=== PATIENT | female | born 1995 | race Hispanic/Latino ===

== ENCOUNTER 2018-02-06 09:53 | Emergency (ER) | payer MEDICARE, OTHER ==
[~2018-02-06] VITALS: Ht 175.3 cm; Wt 96.6 kg
--- OUTSIDE RECORDS SUMMARY | 2018-02-06 09:55 | XMS REPORT ---
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 Allergies, Adverse Reactions, Alerts This patient has no known allergies or adverse reactions. Medications This patient has no known medications. Results Test Description Test Time Test Comments Text Results Atomic Results Result Comments HEPATITIS C PCR, QUANTITATIVE 2018-02-05 18:24:00 HCV RESULT COMPONENT (BEAKER) (test kolx=5140) HCV RNA not detected HCV RNA not detected This test uses a Real-Time Polymerase Chain Reaction (RT-PCR) methodology and was performed using HECTOR Ampliprep/HECTOR TaqMan HCV test kit version 2.0 ( [employer]).Reportable range for this assay is 15 - 100,000, 000 IU per mL (1.18 - 8.00 Log IU/mL).HEPATITIS A ANTIBODY, [id number] 15:46: 00* Test Item Value Reference Range Comments HEPATITIS A IGM ANTIBODY (BEAKER) (test qsyq=436) Nonreactive Nonreactive HEPATITIS B CORE ANTIBODY, [id number] 15:46:00* Test Item Value Reference Range Comments HEPATITIS B CORE TOTAL ANTIBODY (BEAKER) (test weqn=916) Nonreactive Nonreactive HEPATITIS A ANTIBODY, [id number] 15:46:00* Test Item Value Reference Range Comments HEPATITIS A IGG ANTIBODY (BEAKER) (test ydgp=4966) Nonreactive Nonreactive HEPATITIS B SURFACE [id number] 15:16:00* Test Item Value Reference Range Comments HEPATITIS B SURFACE ANTIGEN (2) (BEAKER) (test zjqz=1099) Nonreactive Nonreactive HEPATITIS B SURFACE [id number] 15:16:00* Test Item Value Reference Range Comments HEPATITIS B SURFACE ANTIBODY (BEAKER) (test rauv=907) 9.1 mIU/mL <8.0 ALPHA FETOPROTEIN (AFP), TUMOR [id number] 14:22:00* Test Item Value Reference Range Comments ALPHA-FETOPROTEIN (BEAKER) (test enwa=2120) < ng/mL <10.0 [id number] 14:16:00* Test Item Value Reference Range Comments FERRITIN (BEAKER) (test ysyd=600) 12 ng/mL 5-275 [id number] 14:08:00* Test Item Value Reference Range Comments ALPHA-1 ANTITRYPSIN (BEAKER) (test nqek=480) 154.60 mg/dL 90.00-200.00 IMMUNOGLOBULIN G (IGG)2018-02-04 14:07:00* Test Item Value Reference Range Comments IMMUNOGLOBULIN G (IGG) (BEAKER) (test ujib=525) 1186 mg/dL 540-1822 IRON, TIBC, % SAT. (WITHOUT FERRITIN)2018-02-04 14:07:00* Test Item Value Reference Range Comments IRON (BEAKER) (test fugz=555) 38 ug/dL 40-160 TOTAL IRON BINDING CAPACITY (BEAKER) (test wvhv=911) 370 ug/dL 250-450 IRON % SATURATION (2) (BEAKER) (test dcsw=3690) 10 % 20-55 COMPREHENSIVE METABOLIC [id number] 14:04:00* Test Item Value Reference Range Comments TOTAL PROTEIN (BEAKER) (test ekjv=337) 7.7 gm/dL 6.0-8.3 ALBUMIN (BEAKER) (test hrho=9028) 4.0 g/dL 3.5-5.0 ALKALINE PHOSPHATASE (BEAKER) (test icrt=003) 62 U/L 40-150 BILIRUBIN TOTAL (BEAKER) (test bocq=464) 0.5 mg/dL 0.2-1.2 SODIUM (BEAKER) (test xugy=505) 143 meq/L 136-145 POTASSIUM (BEAKER) (test hmao=059) 4.2 meq/L 3.5-5.1 CHLORIDE (BEAKER) (test qjkk=858) 106 meq/L 98-107 CO2 (BEAKER) (test wwnu=597) 28 meq/L 22-29 BLOOD UREA NITROGEN (BEAKER) (test caix=518) 15 mg/dL 7-21 CREATININE (BEAKER) (test vhfi=554) 0.71 mg/dL 0.57-1.25 GLUCOSE RANDOM (BEAKER) (test nlsp=812) 94 mg/dL 70-105 CALCIUM (BEAKER) (test jmxz=217) 9.4 mg/dL 8.4-10.2 AST (SGOT) (BEAKER) (test djbg=715) 22 U/L 5-34 ALT (SGPT) (BEAKER) (test xbbk=806) 20 U/L 6-55 EGFR (BEAKER) (test xyqg=5225) 104 mL/min/1.73 sq m ESTIMATED GFR IS NOT ACCURATE CREATININE CLEARANCE IN PREDICTING GLOMERULAR FILTRATION RATE. ESTIMATED GFR IS NOT APPLICABLE FOR DIALYSIS PATIENTS. BILIRUBIN, [id number] 14:04:00* Test Item Value Reference Range Comments BILIRUBIN DIRECT (BEAKER) (test etub=034) 0.2 mg/dL 0.1-0.5 CBC W/PLT COUNT & AUTO [id number] 13:37:00* Test Item Value Reference Range Comments WHITE BLOOD CELL COUNT (BEAKER) (test whsr=384) 12.9 K/ L 3.5-10.5 RED BLOOD CELL COUNT (BEAKER) (test mqyx=091) 4.68 M/ L 3.93-5.22 HEMOGLOBIN (BEAKER) (test xcio=470) 12.0 GM/DL 11.2-15.7 HEMATOCRIT (BEAKER) (test madi=135) 38.7 % 34.1-44.9 MEAN CORPUSCULAR VOLUME (BEAKER) (test rlhj=384) 82.7 fL 79.4-94.8 MEAN CORPUSCULAR HEMOGLOBIN (BEAKER) (test ciph=859) 25.6 pg 25.6-32.2 MEAN CORPUSCULAR HEMOGLOBIN CONC (BEAKER) (test dymn=161) 31.0 GM/DL 32.2- 35.5 RED CELL DISTRIBUTION WIDTH (BEAKER) (test jgqt=271) 13.5 % 11.7-14.4 PLATELET COUNT (BEAKER) (test mlvu=739) 238 K/CU MM 150-450 MEAN PLATELET VOLUME (BEAKER) (test rnrt=987) 11.5 fL 9.4-12.3 NUCLEATED RED BLOOD CELLS (BEAKER) (test guzv=005) 0 /100 WBC 0-0 NEUTROPHILS RELATIVE PERCENT (BEAKER) (test vtrl=235) 76 % LYMPHOCYTES RELATIVE PERCENT (BEAKER) (test tdej=421) 14 % MONOCYTES RELATIVE PERCENT (BEAKER) (test waxl=767) 8 % EOSINOPHILS RELATIVE PERCENT (BEAKER) (test ftbo=517) 1 % BASOPHILS RELATIVE PERCENT (BEAKER) (test mnij=377) 0 % NEUTROPHILS ABSOLUTE COUNT (BEAKER) (test bawo=306) 9.83 K/ L 1.56-6.13 LYMPHOCYTES ABSOLUTE COUNT (BEAKER) (test eylo=429) 1.80 K/ L 1.18-3.74 MONOCYTES ABSOLUTE COUNT (BEAKER) (test hhyk=701) 1.03 K/ L 0.24-0.36 EOSINOPHILS ABSOLUTE COUNT (BEAKER) (test ogzc=419) 0.06 K/ L 0.04-0.36 BASOPHILS ABSOLUTE COUNT (BEAKER) (test aqtw=367) 0.05 K/ L 0.01-0.08 IMMATURE GRANULOCYTES-RELATIVE PERCENT (BEAKER) (test nizb=2380) 1 % 0-1 PROTHROMBIN [id number] 13:27:00* Test Item Value Reference Range Comments PROTIME (BEAKER) (test jhps=774) 13.0 seconds 11.7-14.7 INR (BEAKER) (test sipi=524) 1.0 <=5.9 RECOMMENDED COUMADIN/WARFARIN INR THERAPY RANGESSTANDARD DOSE: 2.0 - 3.0 Includes: PROPHYLAXIS for venous thrombosis, systemic embolization; TREATMENT for venous thrombosis and/or pulmonary embolus.HIGH RISK: Target INR is 2.5-3.5 for patients with mechanical heart valves.
[2018-02-06] MEDS ORDERED: ASPIR 8181 MG PO (10:12)
[2018-02-06] MEDS ORDERED: HYDROXYCHLOROQ200 MG PO (10:12)
[2018-02-06] MEDS ORDERED: NEXIUM40 MG PO (10:12)
[2018-02-06] MEDS ORDERED: FLOVENT HFA17 GM PO (10:12)
[2018-02-06] MEDS ORDERED: CELEBREX200 MG PO (10:12)
[2018-02-06] MEDS ORDERED: MYCOPHENOLATE250 MG PO (10:12)
[2018-02-06] MEDS ORDERED: NORA-BE0.35 MG PO (10:12)
[2018-02-06] MEDS ORDERED: PREDNISONE10 MG PO (10:12)
[2018-02-06] MEDS ORDERED: SODIUM CHLORIDE 0.9% 1000ML 1,000 ML IV STA ×3 (10:22→10:40)
[2018-02-06 10:32] LABS: BASOPHILS % 0.1 % (0.0-1.0); EOSINOPHILS % 0.2 % (0.0-6.0); HEMOGLOBIN 12.3 g/dL (12.0-16.0); LYMPHOCYTES # (AUTO) 2.1 (1.0-3.2); LYMPHOCYTES % 13.2 % (18.0-39.1); MEAN CORPUSCULAR HEMOGLOBIN 25.9 pg (28-32); MEAN CORPUSCULAR HGB CONC 32.4 g/dL (31-35); MONOCYTES % 6.2 % (4.4-11.3); NEUTROPHILS # (AUTO) 12.7 (2.1-6.9); NEUTROPHILS % 79.7 % (38.7-80.0); PLATELET COUNT 232 x10e3/uL (140-360); RED BLOOD COUNT 4.75 x10e6/uL (3.6-5.1); RED CELL DISTRIBUTION WIDTH 13.3 % (11.7-14.4)
--- NOTE | 2018-02-06 10:35 | Diagnostic Imaging Report ---
PROCEDURE: X-RAY CHEST, TWO VIEWS COMPARISON: None. INDICATIONS: FEVER, NAUSEA FINDINGS: LUNGS: No consolidations or edema. PLEURA: No effusions or pneumothorax. HEART \T\ MEDIASTINUM: The heart is within normal size-limits. BONES \T\ SOFT TISSUES: No acute findings. CONCLUSION: No acute thoracic abnormality. Dictated by: Francisco Curry M.D. on 02/06/2018 at 10:35 Electronically approved by: Francisco Curry M.D. on 02/06/2018 at 10:35
[2018-02-06] MEDS ORDERED: IBUPROFEN 600 MG TAB PO STA (10:36)
[2018-02-06] MEDS ORDERED: FAMOTIDINE 20 MG/2 ML VIAL IV STA (10:40)
[2018-02-06 10:43] LABS: INR 0.99; PROTHROMBIN TIME 12.3 seconds (11.9-14.5)
[2018-02-06 10:44] LABS: PARTIAL THROMBOPLASTIN TIME 31.7 seconds (23.8-35.5)
[2018-02-06] MEDS ORDERED: DIPHENHYDRAMINE HCL INJ 50 MG/ML VIAL IV ONE (10:45)
[2018-02-06] MEDS ORDERED: DOXYCYCLINE 100MG/NS 100ML 100 ML IV ONE (10:45)
[2018-02-06] MEDS ORDERED: MEROPENEM 1GRAM 1 GM in SODIUM CHLORIDE 0.9% 100 ML 100 ML IV ONE (10:45)
[2018-02-06] MEDS ORDERED: LEVOFLOXACIN 750MG/D5W 150ML 150 ML IV ONE (10:45)
[2018-02-06] MEDS ORDERED: ACETAMINOPHEN 325 MG TAB PO ONE (10:45)
[2018-02-06 10:46] LABS: MAGNESIUM 1.7 MG/DL (1.3-2.1)
[2018-02-06 11:42] LABS: ALANINE AMINOTRANSFERASE 27 IU/L (0-55); ALBUMIN 3.7 g/dL (3.5-5.0); ALBUMIN/GLOBULIN RATIO 0.8 (0.8-2.0); ALKALINE PHOSPHATASE 69 IU/L (40-150); ANION GAP 16.8 mmol/L (8-16); BLOOD UREA NITROGEN 13 mg/dL (7-26); BUN/CREATININE RATIO 18 (6-25); CALCIUM 9.7 mg/dL (8.4-10.2); CARBON DIOXIDE 24 mmol/L (22-29); CHLORIDE 102 mmol/L (98-107); CREATININE, SERUM 0.73 mg/dL (0.57-1.11); EST GLOMERULAR FILTRATION RATE > 60 ML/MIN (60-); GLUCOSE 88 mg/dL (74-118); POTASSIUM 3.8 mmol/L (3.5-5.1); SODIUM 139 mmol/L (136-145)
[2018-02-06 13:28] LABS: CREATINE KINASE MB 0.7 ng/mL (0-5.0)
== END 2018-02-06 12:00 | disposition designated cancer center or children's hospital (05) ==
LOC: ER 09:53
DX: R50.9 Fever, unspecified (principal); L02.31 Cutaneous abscess of buttock; L02.415 Cutaneous abscess of right lower limb; D72.829 Elevated white blood cell count, unspecified; M32.9 Systemic lupus erythematosus, unspecified; K75.4 Autoimmune hepatitis
CPT/HCPCS: 36415; 71046; 80053; 82550; 82553; 83605; 83690; 83735; 84484; 84702; 85025; 85610; 85730; 87040; 99284; J1200; J7030

== ENCOUNTER 2018-04-14 18:33 | Emergency (ER) | payer OTHER ==
[~2018-04-14] VITALS: Ht 175.3 cm; Wt 96.6 kg
[~2018-04-14 18:33] MED LIST: ASPIR 8181 MG PO; CELEBREX200 MG PO; FLOVENT HFA17 GM PO; HYDROXYCHLOROQ200 MG PO; MYCOPHENOLATE250 MG PO; NEXIUM40 MG PO; NORA-BE0.35 MG PO; PREDNISONE10 MG PO
--- OUTSIDE RECORDS SUMMARY | 2018-04-14 18:37 | XMS REPORT | Continuity of Care Document ---
Author Author [facility] Organization [facility] Address [address] [place] [address] Phone Unavailable Care Team Providers Care Jigman Name Role Phone KIZZY CHUA MD PCP Advance Directives Directive Response Recorded Date/Time Does the patient have an advance directive? No 02/06/18 9:56am If yes, is advance directive on file with [facility]? No 02/06/18 9:56am If not on file with [facility] will patient provide a copy? No 02/06/18 9:56am Do you have a Directive to Physician? No 02/06/18 9:56am Do you have a Medical Power of Joint Finisher? No 02/06/18 9:56am Do you have an out of hospital Do Not Resuscitate Order? No 02/06/18 9:56am Do you have any special needs we should be aware of? No 02/06/18 9:56am Do you have a support person here with you today? Yes 02/06/18 9:56am Did patient receive Notice of Privacy Practices? Yes 02/06/18 9:56am Did patient receive patient rights and responsibilities? Yes 02/06/18 9:56am Problems No problem information available. Medications Current Home Medications Medication Dose Units Route Directions Days Qty Instructions Start Date Aspirin (Aspir 81) 81 Mg Tablet. 1 Tab Oral Daily Celecoxib (Celebrex) 200 Mg Capsule 1 Tab Oral Daily Esomeprazole Magnesium (Nexium) 40 Mg Capsule. 1 Cap Oral Daily PROTONIX THERAPEUTIC SUBSTITUTE FOR NEXIUM PER MEC Fluticasone Propionate (Flovent Hfa) 17 Gm Aers 220 Mcg Oral Twice A Day Hydroxychloroquine Sulfate 200 Mg Tablet 2 Tab Oral Daily Mycophenolate Mofetil 250 Mg Capsule 500 Mg Oral Twice A Day Norethindrone (Danae-Be) 0.35 Mg Tablet 1 Tab Oral Daily Prednisone 10 Mg Tab 15 Mg Oral Daily Social History No social history information available. Hospital Discharge Instructions No hospital discharge instruction information available. Plan of Care Discharge Date 02/06/18 12:00pm Disposition DIS/HECK T0 ACUTE CARE HOSP Condition at Discharge Stable Instructions/Education Provided Rash - Nonspecific Forms Provided Work/School Excuse Prescriptions See Medication Section Functional Status No functional status information available. Allergies, Adverse Reactions, Alerts Allergen Type Severity Reaction Status Last Updated Penicillin Allergy Unknown Active 02/06/18 Acetaminophen Allergy Unknown Active 02/06/18 Ibuprofen Allergy Unknown Active 02/06/18 Naproxen Allergy Unknown Active 02/06/18 Clindamycin Allergy Unknown Active 02/06/18 Famotidine Allergy Unknown Active 02/06/18 Tramadol Allergy Unknown Active 02/06/18 Ketorolac Allergy Unknown Active 02/06/18 Vancomycin Allergy Unknown Active 02/06/18 Immunizations No immunization information available. Vital Signs Acute Vital Signs Vital Response Date/Time Height 5 ft 9 in 02/06/2018 9:59am Weight 213 lb 02/06/2018 9:59am Body Mass Index 31.5 kg/m^2 02/06/2018 9:59am Results Laboratory Results Test Name Result Units Flags Reference Collection Date/Time Result Date/ Time Comments White Blood Count 15.99 x10e3/uL H 4.8-10.8 02/06/2018 UNK 02/06/2018 10 :35am Red Blood Count 4.75 x10e6/uL 3.6-5.1 02/06/2018 UNK 02/06/2018 10: 35am Hemoglobin 12.3 g/dL 12.0-16.0 02/06/2018 UNK 02/06/2018 10:35am Hematocrit 38.0 % 34.2-44.1 02/06/2018 UNK 02/06/2018 10:35am Mean Corpuscular Volume 80.0 fL L 81-99 02/06/201802/06/2018 10: 35am Mean Corpuscular Hemoglobin 25.9 pg L 28-32 02/06/201802/06/2018 10 :35am Mean Corpuscular Hemoglobin Concent 32.4 g/dL 31-35 02/06/201808/2018 10:35am Red Cell Distribution Width 13.3 % 11.7-14.4 02/06/201802/06/2018 10:35am Platelet Count 232 x10e3/uL 140-360 02/06/201802/06/2018 10:35am Neutrophils (%) (Auto) 79.7 % 38.7-80.0 02/06/201802/06/2018 10: 35am Lymphocytes (%) (Auto) 13.2 % L 18.0-39.1 02/06/2018 02/06/2018 10: 35am Monocytes (%) (Auto) 6.2 % 4.4-11.3 02/06/2018 02/06/2018 10:35am Eosinophils (%) (Auto) 0.2 % 0.0-6.0 02/06/201802/06/2018 10:35am Basophils (%) (Auto) 0.1 % 0.0-1.0 02/06/201802/06/2018 10:35am IM GRANULOCYTES % 0.6 % 0.0-1.0 02/06/201802/06/2018 10:35am Neutrophils # (Auto) 12.7 H 2.1-6.9 02/06/201802/06/2018 10:35am Lymphocytes # (Auto) 2.1 1.0-3.2 02/06/201802/06/2018 10:35am Monocytes # (Auto) 1.0 H 0.2-0.8 02/06/201802/06/2018 10:35am Eosinophils # (Auto) 0.0 0.0-0.4 02/06/201802/06/2018 10:35am Basophils # (Auto) 0.0 0.0-0.1 02/06/201802/06/2018 10:35am Absolute Immature Granulocyte (auto 0.10 x10e3/uL 0-0.1 02/06/2018K 02/06/2018 10:35am Prothrombin Time 12.3 seconds 11.9-14.5 02/06/2018K 02/06/2018 10: 48am Prothromb Time International Ratio 0.99 02/06/2018K 02/06/2018 10:48am Oral Anticoagulant Therapy INR Values: 1. Low Intensity Therapy 1.5 - 2.0 2. Moderate Intensity Therapy 2.0 - 3.0 3. High Intensity Therapy(1) 2.5 - 3.5 4. High Intensity Therapy(2) 3.0 - 4.0 5. Panic Value INR > 5.0 Activated Partial Thromboplast Time 31.7 seconds 23.8-35.5 02/06/2018K 02/06/2018 10:48am Sodium Level 139 mmol/L 136-145 02/06/2018 10:14am 02/06/2018 11:45am Potassium Level 3.8 mmol/L 3.5-5.1 02/06/2018 10:14am 02/06/2018 11: 45am Chloride Level 102 mmol/L 98-107 02/06/2018 10:14am 02/06/2018 11:45am Carbon Dioxide Level 24 mmol/L 22-29 02/06/2018 10:14am 02/06/2018 11: 45am Anion Gap 16.8 mmol/L H 8-16 02/06/2018 10:14am 02/06/2018 11:45am Blood Urea Nitrogen 13 mg/dL 7-26 02/06/2018 10:14am 02/06/2018 11: 45am Creatinine 0.73 mg/dL 0.57-1.11 02/06/2018 10:14am 02/06/2018 11:45am BUN/Creatinine Ratio 18 6-25 02/06/2018 10:14am 02/06/2018 11:45am Estimat Glomerular Filtration Rate > 60 ML/MIN 60- 02/06/2018 10:14am 02/06/2018 11:45am Ranges were taken from the National Kidney Disease Education Program and the National [employer] literature. Reference ranges: 60 or greater: Normal 16-59 (for 3 consecutive months): Chronic kidney disease 15 or less: Kidney failure Glucose Level 88 mg/dL 74-118 02/06/2018 10:14am 02/06/2018 11:45am Calcium Level 9.7 mg/dL 8.4-10.2 02/06/2018 10:1402/06/2018 11:45am Lactic Acid Level 15.9 MG/DL 4.5-19.8 02/06/2018 UNK 02/06/2018 11: 22am Magnesium Level 1.7 MG/DL 1.3-2.1 02/06/2018 10:02/06/2018 10: 48am Total Bilirubin 0.9 mg/dL 0.2-1.2 02/06/2018 10:1402/06/2018 11: 45am Aspartate Amino Transf (AST/SGOT) 20 IU/L 5-34 02/06/2018 10:1402/06 11:45am Alanine Aminotransferase (ALT/SGPT) 27 IU/L 0-55 02/06/2018 10:08/2018 11:45am Total Protein 8.1 g/dL 6.5-8.1 02/06/2018 10:1402/06/2018 11:45am Albumin 3.7 g/dL 3.5-5.0 02/06/2018 10:1402/06/2018 11:45am Globulin 4.4 g/dL H 2.3-3.5 02/06/2018 10:1402/06/2018 11:45am Albumin/Globulin Ratio 0.8 0.8-2.0 02/06/2018 10:1402/06/2018 11: 45am Alkaline Phosphatase 69 IU/L 40-150 02/06/2018 10:14am 02/06/2018 11: 45am Creatine Kinase 55 IU/L 29-168 02/06/2018 10:2202/06/2018 10:48am Lipase 8 U/L 8-78 02/06/2018 10:02/06/2018 10:48am Human Chorionic Gonadotropin, Qual NEGATIVE NEGATIVE 02/06/2018 10: 14am 02/06/2018 10:41am Procedures Procedure Status Date Provider(s) X-ray of chest, two views Active 02/06/18 JUSTIN CERDA Encounters Encounter Location Arrival/Admit Date Discharge/Depart Date Attending Provider Departed Emergency Room [facility] 02/06/18 9:53am 12:00pm JUSTIN CERDA
--- OUTSIDE RECORDS SUMMARY | 2018-04-14 18:37 | XMS REPORT | Clinical Summary ---
Author Author ABBY [facility] Address Unknown Phone Unavailable Care Team Providers Care National Recruiter Name Role Phone PCP Unavailable Allergies Active Allergy Reactions Severity Noted Date Comments Clindamycin Hives, Other (See High 10/16/2015 Per mother Comments), Anaphylaxis, Can't breath Swelling Ibuprofen Swelling, Anaphylaxis High 11/02/2013 Throat swells. 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 Disp. Refills Start End Date Status Date celecoxib (CELEBREX) 200 12/29/19 Active MG capsule 18 aspirin-calcium carbonate Take 81 mg by mouth. Active 81 mg-300 mg calcium(777 mg) Tab hydroxychloroquine Take 400 mg by mouth. Active (PLAQUENIL) 200 mg tablet predniSONE (DELTASONE) 10 10 mg daily . 3 11/13/20 Active MG tablet 17 mycophenolate (CELLCEPT) Take 1,000 mg by mouth 2 Active 500 mg tablet (two) times daily . norethindrone (MICRONOR) Take 1 tablet by mouth Active 0.35 mg per tablet daily. esomeprazole (NEXIUM) 40 Take 40 mg by mouth Active MG capsule daily. ALBUTEROL SULFATE (PROAIR Inhale by mouth via Active HFA INHL) inhaler as needed . BELIMUMAB IV Inject intravenously Active every 14 (fourteen) days . ferrous sulfate 325 (65 Take 1 tablet (325 mg 30 tablet 11 04/01/20 04/01/20 Active FE) MG tablet total) by mouth daily. 18 19 oxyCODONE (ROXICODONE) 15 Take 1 tablet (15 mg 30 tablet 0 04/01/20 05/01/20 Active MG immediate release total) by mouth every 3 18 18 tablet (three) hours as needed for up to 30 days. Max Daily Amount: 120 mg oxyCODONE (ROXICODONE) 15 Take 1 tablet (15 mg 30 tablet 0 04/01/20 04/01/20 Discontin MG immediate release total) by mouth every 3 18 18 ued tablet (three) hours as needed for up to 30 days. Max Daily Amount: 120 mg ondansetron (ZOFRAN) 4 MG Take 1 tablet (4 mg 30 tablet 0 04/01/20 04/08/20 tablet total) by mouth 2 (two) 18 18 times daily as needed for Nausea for up to 7 days. Active Problems Problem Noted Date History of liver biopsy 03/31/2018 Facial cellulitis 01/07/2018 Migraine aura, persistent, with status migrainosus 01/07/2018 Systemic lupus erythematosus (SLE) in adult ([facility]) 01/07/2018 Periapical abscess with sinus tract 09/24/2017 Immunosuppression ([facility]) 12/19/2016 Calculus of gallbladder without cholecystitis without obstruction 10/17/2015 History of TIA (transient ischemic attack) 06/24/2014 Mixed emotional features as adjustment reaction 09/24/2013 Depression 09/23/2013 Panic disorder with agoraphobia and moderate panic attacks 09/23/2013 Antiphospholipid antibody positive 01/17/2013 Excessive and frequent menstruation 12/24/2012 Overview: Overview: Overview: Formatting of this note may be different from the original. Ref. Range 12/31/2012 08:58 WBC Latest Range: 4.5-13.5 10^3/UL 4.43 (L) RBC Latest Range: 4.1-5.1 10^6/UL 3.87 (L) HGB Latest Range: 12.0-16.0 G/DL 12.8 HCT Latest Range: 36.0-45.0 % 36.1 MCV Latest Range: 78.0-95.0 FL 93.3 MCH Latest Range: 26.0-32.0 PG 33.1 (H) MCHC Latest Range: 32.0-36.0 G/DL 35.5 RDWCV Latest Range: 11.5-14.0 % 12.9 RDWSD Latest Range: 38.5-49.0 FL 43.8 Platelet Latest Range: 150-450 10^3/UL 171 Ref. Range 12/31/2012 08:58 Factor 13 Activity Latest Range: . 103 Factor 8 Latest Range: 47-169 % 122 Fibrinogen Latest Range: 220-440 MG/DL 332 INR Latest Range: 0.8-1.2 1.0 Protime Latest Range: 11.4-15.0 SEC 13.0 PTT Latest Range: 24.9-34.3 SEC 34.7 (H) Ristocetin Cofactor Latest Range: 48-142 % 103 Ristocetin High Ag Latest Range: 7-48 OHMS 25 Ristocetin Low Ag Latest Range: <5 OHMS 0 SPEC COAG REQ INFO No range found Rpt Thrombin Secretion Latest Range: 0.62-1.65 NMOLES 1.35 VWF Antigen Latest Range: 56-176 % 96 VWL Act/VWF AG Latest Range: 0.7-1.2 1.1 Ref. Range 01/14/2013 14:36 Ferritin Latest Range: 10-70 NG/ML 16 Iron Latest Range: 55-150 UG/DL 124 Transferrin Latest Range: 169-300 MG/DL 300 Transferrin Sat Latest Range: 11-44 % 28 12/31/2012: 1. The platelet count in the specimen was 153,000/mm3. 2. Platelet aggregation was normal in response to all agonists tested. 3. ATP release (secretion) was normal in response to thrombin, low dose collagen and ADP; secretion was increased in response to high dose collagen and arachidonic acid. ASSESSMENT: In conclusion, these findings are not suggestive of a platelet function defect. Ref. Range 01/14/2013 14:36 Factor 11 Latest Range: 48-139 % 88 Factor 8 Latest Range: 47-169 % 130 Ristocetin Cofactor Latest Range: 48-142 % 110 TEG Angle Latest Range: 49.1-74.7 DEG 59.7 TEG Coag Index Latest Range: . NEG 0.6 REFERENCE RANGE (NEG 5.3 - 2.6) TEG Fibrinolysis Latest Range: . % 0.0 TEG Max Amplitude Latest Range: 53.6-70.3 MM 62.7 TEG Reaction Time Latest Range: 4.4-11.0 MIN 6.4 TEGK Clot Firmness Latest Range: 5.2-11.3 K d/sc 8.4... TEGK Path Comment Latest Range: . All parameters were within normal limits and no hyperfibrinolysis was observed. TEGK Reviewed By Latest Range: . SERGO MARCANO MD VWF Antigen Latest Range: 56-176 % 109 VWL Act/VWF AG Latest Range: 0.7-1.2 1.0 Autoimmune hepatitis (HCC) 03/12/2011 Chronic pain 03/12/2011 SLE (systemic lupus erythematosus) (HCC) Elevated liver enzymes Obesity, Class I, BMI 30-34.9 Rheumatoid arthritis (HCC) Pneumonitis Overview: SLE related Immunity status testing Headache Dental decay Antiphospholipid antibody syndrome (HCC) Hepatomegaly Splenomegaly Encounters Date Type Specialty Care Team Description 04/13/2018 Emergency Emergency Medicine - 04/14/2018 04/13/2018 Telephone Hepatology Honey Jimenez, Fever (Cough and pain on [facility] the biopsy site) 04/13/2018 Telephone Hepatology Jackie Herrera RN other 03/31/2018 [facility] General Internal Medicine Honey Jimenez, Splenomegaly;Autoimmune - Encounter [facility] hepatitis (HCC);Lupus 04/01/2018 Daniel Mtz MD erythematosus, unspecified form;History of liver biopsy;Antiphospholipid antibody syndrome (HCC);Immunosuppression (HCC);Systemic lupus erythematosus (SLE) in adult (HCC) 03/31/2018 Orders Only Internal Medicine Daniel Mtz MD 03/20/2018 Office Visit Hepatology Honey Jimenez, Autoimmune hepatitis [facility] (HCC) (Primary Dx);Splenomegaly;Lupus erythematosus, unspecified form;Obesity, Class I, BMI 30-34.9;Immunization counseling;Immune to hepatitis B;Gallbladder polyp;Low iron;Portal hypertension (HCC) 02/19/2018 [facility] Radiology Honey Jimenez, Systemic lupus Encounter [facility] erythematosus, unspecified SLE type, unspecified organ involvement status (HCC);Elevated liver enzymes;Autoimmune hepatitis (HCC) 02/09/2018 Abstract Hepatology Jailene Owens RN 02/04/2018 Office Visit Hepatology Honey Jimenez, Autoimmune hepatitis [facility] (HCC) (Primary Dx);Systemic lupus erythematosus, unspecified SLE type, unspecified organ involvement status (HCC);Elevated liver enzymes;Obesity, Class I, BMI 30-34.9;Rheumatoid arthritis, involving unspecified site, unspecified rheumatoid factor presence (HCC);Pneumonitis;Immunit y status testing;Intractable headache, unspecified chronicity pattern, unspecified headache type;Screening for malignant neoplasm after 04/13/2017 Family History Medical History Relation Name Comments Diabetes Brother Diabetes Father Cancer Maternal Grandfather Cirrhosis Maternal Grandmother Diabetes Maternal Grandmother Diabetes Mother Relation Name Status Comments Brother Father Maternal Grandfather Maternal Grandmother Mother Social History Tobacco Use Types Packs/Day Years Used Date Never Smoker Smokeless Tobacco: Never Used Alcohol Use Drinks/Week oz/Week Comments No Sex Assigned at Date Recorded Not on file Last Filed Vital Signs Vital Sign Reading Time Taken Blood Pressure 117/82 04/01/2018 11:00 AM CDT Pulse 87 04/01/2018 11:00 AM CDT Temperature 36.1 C (97 F) 04/01/2018 11:00 AM CDT Respiratory Rate 18 04/01/2018 11:00 AM CDT Oxygen Saturation 96% 04/01/2018 11:00 AM CDT Inhaled Oxygen - - Concentration Weight 95 kg (209 lb 8 oz) 03/31/2018 8:00 PM CDT Height 177.8 cm (5' 10") 03/31/2018 8:00 PM CDT Body Mass Index 30.06 03/31/2018 8:00 PM CDT Plan of Treatment Date Type Specialty Care Team Description 04/17/2018 Office Visit Hepatology Honey Jimenez MD [facility] [id number] [address] Health Maintenance Due Date Last Done Comments INFLUENZA VACCINE 08/31/2018 Results * PT/aPTT (04/01/2018 5:28 AM) Only the most recent of 2 results within the time period is included. Component Value Ref Range Protime 14.1 11.7 - 14.7 seconds INR 1.1 <=5.9 PTT 37.6 (H) 22.5 - 36.0 seconds Specimen Performing Laboratory Blood - Arm, [address] [address] Narrative RECOMMENDED COUMADIN/WARFARIN INR THERAPY RANGES STANDARD DOSE: 2.0 - 3.0 Includes: PROPHYLAXIS for venous thrombosis, systemic embolization; TREATMENT for venous thrombosis and/or pulmonary embolus. HIGH RISK: Target INR is 2.5-3.5 for patients with mechanical heart valves. * CBC (Hemogram only) (04/01/2018 5:28 AM) Only the most recent of 3 results within the time period is included. Component Value Ref Range WBC 4.4 3.5 - 10.5 K/ L RBC 3.86 (L) 3.93 - 5.22 M/ L Hemoglobin 9.6 (L) 11.2 - 15.7 GM/DL Hematocrit 30.8 (L) 34.1 - 44.9 % MCV 79.8 79.4 - 94.8 fL MCH 24.9 (L) 25.6 - 32.2 pg MCHC 31.2 (L) 32.2 - 35.5 GM/DL RDW 13.9 11.7 - 14.4 % Platelets 222 150 - 450 K/CU MM MPV 10.9 9.4 - 12.3 fL nRBC 0 0 - 0 /100 WBC Specimen Performing Laboratory Blood - Arm, [address] [address] * Magnesium (04/01/2018 5:28 AM) Component Value Ref Range Magnesium 1.8 1.6 - 2.6 mg/dL Specimen Performing Laboratory Blood - Arm, [address] [address] * Hepatic function panel (04/01/2018 5:28 AM) Component Value Ref Range Protein, Total 6.8 6.0 - 8.3 gm/dL Albumin 3.3 (L) 3.5 - 5.0 g/dL Total Bilirubin 0.7 0.2 - 1.2 mg/dL Bilirubin, Direct 0.3 0.1 - 0.5 mg/dL Alkaline Phosphatase 97 40 - 150 U/L AST 120 (H) 5 - 34 U/L ALT 93 (H) 6 - 55 U/L Specimen Performing Laboratory Blood - Arm, Right [facility] [address] * Basic metabolic panel (04/01/2018 5:28 AM) Only the most recent of 2 results within the time period is included. Component Value Ref Range Sodium 137 136 - 145 meq/L Potassium 4.0 3.5 - 5.1 meq/L Chloride 107 98 - 107 meq/L CO2 21 (L) 22 - 29 meq/L BUN 8 7 - 21 mg/dL Creatinine 0.57 0.57 - 1.25 mg/dL Glucose 88 70 - 105 mg/dL Calcium 8.4 8.4 - 10.2 mg/dL EGFR 134Comment: ESTIMATED GFR IS NOT ACCURATE mL/min/1.73 sq m CREATININE CLEARANCE IN PREDICTING GLOMERULAR FILTRATION RATE. ESTIMATED GFR IS NOT APPLICABLE FOR DIALYSIS PATIENTS. Specimen Performing Laboratory Blood - Arm, Right [address] [address] * Tissue Exam (03/31/2018 10:16 PM) Component Value Ref Range Case Report Surgical Pathology Report Case: [id number] Authorizing Provider: Daniel Mtz MD Collected: 03/31/20182215 Ordering Location: [address] Received: 03/31/20182220 Service Pathologist: Julien Foss MD Specimen: Biopsy, Liver, Bx R Lobe DIAGNOSIS The report is being amended to delete the component of non-necrotizing epithelioid granulomas from the diagnostic line and to delete the comment about granulomas in the diagnosis comment and microscopic section. The remainder of the diagnosis remains the same. LIVER, NON-TARGETED ULTRASOUND GUIDED NEEDLE BIOPSY: - CHRONIC HEPATITIS, ACTIVITY GRADE 3 OF 4, CONSISTENT WITH AUTOIMMUNE HEPATITIS - STEATOSIS, MODERATE - NO SIGNIFICANT PORTAL FIBROSIS - MINIMAL PERISINUSOIDAL FIBROSIS - SEE COMMENT Signing Pathologist Direct Phone Line: [phone] CPT Code(s) 66490, 64853 X4, 14829 x2 CLINICAL HISTORY Known history of autoimmune hepatitis on treatment since 2008 SPECIMEN SOURCE Ultrasound-guided needle biopsies GROSS DESCRIPTION Received in formalin labeled with patient's name and MRN are two tissue cores measuring 1.3 cm and 1.5 cm in length respectively with an average diameter of 0.1 cm. Entirely submitted in A1. MICROSCOPIC DESCRIPTION Section shows three cores of liver parenchyma with greater than 10 portal tracts and is adequate for evaluation. The portal tracts are expanded by moderate to marked lymphoplasmacytic inflammation with small clusters of plasma cells and grade 2-3 interface activity. The bile ducts are preserved with focal lymphocytic cholangitis. There are focally dense inflammatory infiltrates in the portal tracts,however, they do not appear to be centered on the bile ducts. No bile duct scars are seen. There is moderate to severe lobular inflammation.Small histiocytic collections are noted in the lobules. Occasional scattered acidophilic bodies are seen. In addition there is mild steatosis, predominantly large droplet admixed with medium droplet steatosis, involving about 40% of liver parenchyma. No definitive ballooning degeneration is noted. No glycogenated nuclei are seen. Trichrome stain shows minimal focal perisinusoidal fibrosis in zone 3. No significant portal/periportal fibrosis is seen. Reticulin stain shows 1-2 cell thick hepatocyte trabeculae. Iron stain is negative. No hyaline globules are seen on PAS with diastase stain. AFB and GMS stains are negative for micro-organisms. Special stains: trichrome, reticulin, iron and PAS with diastase. Specimen Performing Laboratory Tissue - Biopsy, [place] [address] Narrative A previously reported component Diagnosis Comment is no longer reported. * US liver biopsy (03/31/2018 4:55 PM) Specimen Performing Laboratory [facility] Narrative FINAL REPORT Ultrasound guided random [place] liverbiopsy: Pertinent clinical information: Autoimmune hepatitis and lupus Modality: Sonography Conscious Sedation : Versed 2 mg and fentanyl 100 mcg intravenously During the procedure with conscious sedation, the patient was monitored continuously with pulse oximetry and electrocardiography by the attending radiologist and nursing personnel. Physician Patient face to face intraservice time: 30 minutes Anesthesia:Two percent Lidocaine injected subcutaneously at the insertion site. Approach: Right intercostal mid axillary Pathology specimen sent: Two core 18-gauge specimen Technique:After informed written consent was obtained, the patient was prepped and draped in the usual sterile manner.Access was obtained using sonographic guidance.A 16-gauge core needle was advanced into the liver.Two passes were made through the liver. The patient tolerated the procedure well. The patient was monitored by a nurse during the procedure.Oxygen saturation, an ECG and blood pressure monitoring was performed throughout the procedure. Impression: Successful, uncomplicated ultrasound-guided [facility] [place] liver biopsy Signed: Kylah Morales MD Report Verified Date/Time:03/31/2018 18:56:07 Reading Location: [address] Ultrasound Reading Room Procedure Note Interface, External Ris In - 03/31/2018 6:58 PM CDT FINAL REPORT Ultrasound guided random [place] liver biopsy: Pertinent clinical information: Autoimmune hepatitis and lupus Modality: Sonography Conscious Sedation : Versed 2 mg and fentanyl 100 mcg intravenously During the procedure with conscious sedation, the patient was monitored continuously with pulse oximetry and electrocardiography by the attending radiologist and nursing personnel. Physician Patient face to face intraservice time: 30 minutes Anesthesia: Two percent Lidocaine injected subcutaneously at the insertion site. Approach: Right intercostal mid axillary Pathology specimen sent: Two core 18-gauge specimen Technique: After informed written consent was obtained, the patient was prepped and draped in the usual sterile manner. Access was obtained using sonographic guidance. A 16-gauge core needle was advanced into the liver. Two passes were made through the liver. The patient tolerated the procedure well. The patient was monitored by a nurse during the procedure. Oxygen saturation, an ECG and blood pressure monitoring was performed throughout the procedure. Impression: Successful, uncomplicated ultrasound-guided [facility] [place] liver biopsy Signed: Kylah Morales MD Report Verified Date/Time: 03/31/2018 18:56:07 Reading Location: [address] Ultrasound Reading Room * hCG, quantitative, (03/31/2018 11:16 AM) Component Value Ref Range hCG Quant <1 0 - 10 mIU/mL Specimen Performing [place] [address] Narrative Non- Females: <10 mIU/mL Females: Gestation AgeReference Range(mIU/mL) 0.2-1 Week5-50 1-2 [id number] 2-3 Weeks 100-5,000 3-4 Weeks 500-10,000 4-5 Weeks 1,000-50,000 5-6 Weeks10,000-100,000 6-8 Weeks15,000-200,000 2-3 Months 10,000-100,000 SERUM * MR abdomen with/without IV contrast (02/19/2018 12:28 PM) Specimen Performing Laboratory [facility] Narrative FINAL REPORT TECHNIQUE: MRI of the abdomen WITHOUT and WITH intravenous contrast. INDICATION: 23-year-old woman with autoimmune hepatitis. COMPARISON: None. FINDINGS: LOWER THORAX: Unremarkable. LIVER: The liver is not overtly cirrhotic. No hepatic steatosis. No focal hepatic lesions. BILIARY: 0.4 cm polyp in the gallbladder, which is otherwise unremarkable. No biliary ductal dilatation or filling defect. SPLEEN: Enlarged, measuring 18.9 cm in the craniocaudal dimension. Splenules adjacent to the inferior spleen. PANCREAS: No focal masses or ductal dilatation. ADRENALS: No adrenal nodules. KIDNEYS/URETERS: No hydronephrosis or solid mass lesions. PERITONEUM/RETROPERITONEUM: No free fluid. LYMPH NODES: No lymphadenopathy. VESSELS: Portal system and hepatic veins are patent. Main portal vein is prominent, measuring 1.5 cm in diameter. GI TRACT: No distention or wall thickening. BONES AND SOFT TISSUES: Unremarkable. IMPRESSION: The liver is not overtly cirrhotic. No hepatic steatosis or focal lesions. Evidence of portal hypertension, including prominent vein and portal vein and splenomegaly. 0.4 cm gallbladder polyp. Signed: Hallie Orozco MD Report Verified Date/Time:02/19/2018 12:49:27 Reading Location: [address] Radiology Reading Room Procedure Note Interface, External Ris In - 02/19/2018 12:51 PM CDT FINAL REPORT TECHNIQUE: MRI of the abdomen WITHOUT and WITH intravenous contrast. INDICATION: 23-year-old woman with autoimmune hepatitis. COMPARISON: None. FINDINGS: LOWER THORAX: Unremarkable. LIVER: The liver is not overtly cirrhotic. No hepatic steatosis. No focal hepatic lesions. BILIARY: 0.4 cm polyp in the gallbladder, which is otherwise unremarkable. No biliary ductal dilatation or filling defect. SPLEEN: Enlarged, measuring 18.9 cm in the craniocaudal dimension. Splenules adjacent to the inferior spleen. PANCREAS: No focal masses or ductal dilatation. ADRENALS: No adrenal nodules. KIDNEYS/URETERS: No hydronephrosis or solid mass lesions. PERITONEUM/RETROPERITONEUM: No free fluid. LYMPH NODES: No lymphadenopathy. VESSELS: Portal system and hepatic veins are patent. Main portal vein is prominent, measuring 1.5 cm in diameter. GI TRACT: No distention or wall thickening. BONES AND SOFT TISSUES: Unremarkable. IMPRESSION: The liver is not overtly cirrhotic. No hepatic steatosis or focal lesions. Evidence of portal hypertension, including prominent vein and portal vein and splenomegaly. 0.4 cm gallbladder polyp. Signed: Hallie Orozco MD Report Verified Date/Time: 02/19/2018 12:49:27 Reading Location: [address] Radiology Reading Room * Alpha-1 antitrypsin Mutation Analysis (02/04/2018 12:38 PM) Component Value Ref Range A1 Antitrypsin Mut SEE BELOW Comment: RESULT: NO MUTATION DETECTED Interpretation: DNA testing indicates that this individual is negative for the PI*Z and PI*S alleles in the mkftj-2-tloksihkcsa (PI) gene (genotype PI*M/PI*M). This negative result does not rule out the presence of other mutations within the PI gene or other causes of knmen-8-zzudgetfaer deficiency. Therefore, these results should be interpreted in the context of the individual's clinical presentation, and other laboratory tests such as measurement of serum zeorv-4-dgwzkivhauv levels. Laboratory results and submitted clinical information reviewed by Silvano Ibarra, Ph.D., [place], [facility], [facility]VERSs. Dpfoq-6-lkshbmohopj deficiency is a relatively common autosomal recessive condition. The two most common deficiency alleles in the ucedl-3-yfgcwgzapbv gene (protease inhibitor locus, PI) are designated PI*Z and PI*S, and the normal allele is designated PI*M. The PI*Z/PI*Z, PI*S/PI*Z, and PI*S/PI*S genotypes associated with decreased serum PI levels that are equivalent to approximately 10-20%, 35-40%, and 50-60% of normal, respectively. The PI*Z/PI*Z and PI*S/PI*Z genotypes are reported to be associated with an increased risk of liver disease in childhood, and chronic obstructive pulmonary disease (COPD) and emphysema in adult life. The PI*M/PI*Z, and PI*M/PI*S genotypes are also associated with decreased serum PI levels but these levels, and the PI levels associated with the PI*S/PI*S genotype, are apparently adequate to protect the lungs in the vast majority of individuals. Individuals with the PI*M/PI*Z genotype may have decreased pulmonary function, and may be at increased risk for COPD, especially if they smoke. It should be noted that serum jcakc-0-qevtgnxzjtz levels can be induced by a wide variety of conditions that include , infection, numerous inflammatory conditions, cancer, and liver disease. Levels of jptok-9-xrlrhkttiih may be reduced by other conditions. Therefore, immunological and functional determinations of serum acago-7-skslrejfpwy levels may not correlate with the individual's PI genotype. The PI*Z, PI*S, and PI*M alleles are detected by multiplex polymerase chain reaction (PCR) amplification of specific regions of the PI gene, followed by restriction enzyme digestion and capillary electrophoresis. This assay does not test for the presence of other mutations within the fjqzy-9-cmykxkqvbml gene or non-genetic causes of lkjlx-1-spornnbcpxq deficiency. Since genetic variation and other factors can affect the accuracy of direct mutation testing, these results should be interpreted in light of clinical and familial data. This test was developed and its analytical performance characteristics have been determined by [employer] [facility]. It has not been cleared or approved by FDA. This assay has been validated pursuant to the CLIA regulations and is used for clinical purposes. Clinical Indication NOT GIVEN Referring Physician NOT GIVEN Specimen Performing Laboratory Blood [facility] [address] [address] Narrative Performing Lab [facility] [employer] [address] [address] Carolina Stein MD, PhD * Mitochondrial Antibodies, M2 (02/04/2018 12:38 PM) Component Value Ref Range Mitochondria M2 Ab <20.0 See Note: U Comment: Reference Range: NEGATIVE: < OR=20.0 EQUIVOCAL: 20.1-24.9 POSITIVE: > OR=25.0 Specimen Performing Laboratory Blood [facility] [address] [address] Narrative Performing Lab EZ [employer] [address] [address] Carolina Stein MD, PhD * Sifad-5-Kikzkfrxdqi (02/04/2018 12:38 PM) Component Value Ref Range A-1 Antitrypsin 154.60 90.00 - 200.00 mg/dL Specimen Performing Laboratory Blood [address] [address] * Pro-time/INR (02/04/2018 12:38 PM) Component Value Ref Range Protime 13.0 11.7 - 14.7 seconds INR 1.0 <=5.9 Specimen Performing Laboratory [address] [address] Narrative RECOMMENDED COUMADIN/WARFARIN INR THERAPY RANGES STANDARD DOSE: 2.0 - 3.0 Includes: PROPHYLAXIS for venous thrombosis, systemic embolization; TREATMENT for venous thrombosis and/or pulmonary embolus. HIGH RISK: Target INR is 2.5-3.5 for patients with mechanical heart valves. * Hepatitis A antibody, IgG (02/04/2018 12:37 PM) Component Value Ref Range Hep A IgG Nonreactive Nonreactive Specimen Performing Laboratory Blood [address] [address] * Iron, TIBC, % sat. (without ferritin) (02/04/2018 12:37 PM) Component Value Ref Range Iron 38 (L) 40 - 160 ug/dL TIBC 370 250 - 450 ug/dL Iron % Saturation 10 (L) 20 - 55 % Specimen Performing Laboratory [address] [address] * CBC with platelet count + automated diff (02/04/2018 12:37 PM) Component Value Ref Range WBC 12.9 (H) 3.5 - 10.5 K/ L RBC 4.68 3.93 - 5.22 M/ L Hemoglobin 12.0 11.2 - 15.7 GM/DL Hematocrit 38.7 34.1 - 44.9 % MCV 82.7 79.4 - 94.8 fL MCH 25.6 25.6 - 32.2 pg MCHC 31.0 (L) 32.2 - 35.5 GM/DL RDW 13.5 11.7 - 14.4 % Platelets 238 150 - 450 K/CU MM MPV 11.5 9.4 - 12.3 fL nRBC 0 0 - 0 /100 WBC % Neutros 76 % % Lymphs 14 % % Monos 8 % % Eos 1 % % Baso 0 % # Neutros 9.83 (H) 1.56 - 6.13 K/ L # Lymphs 1.80 1.18 - 3.74 K/ L # Monos 1.03 (H) 0.24 - 0.36 K/ L # Eos 0.06 0.04 - 0.36 K/ L # Baso 0.05 0.01 - 0.08 K/ L Immature 1 0 - 1 % Granulocytes-Relative Specimen Performing Laboratory [place] [address] * Actin (Smooth Muscle) Antibody, IgG (02/04/2018 12:37 PM) Component Value Ref Range Anti-Smooth Muscle Ab 67 (H) See Note: U Comment: Reference Range: <20 NEGATIVE > OR=20 POSITIVE Antibodies recognizing actin are the main component of smooth muscle antibodies associated with autoimmune liver disease. Actin antibodies are found in approximately 75% of patients with autoimmune hepatitis (AIH) type 1, approximately 65% of patients with autoimmune cholangitis, approximately 30% of patients with primary biliary cirrhosis, and approximately 2% of healthy people. High values are closely correlated with AIH type 1. Specimen Performing Laboratory Blood [facility] [address] [address] Narrative Performing Lab [facility] [address] [address] Carolina Stein MD, PhD * Hepatitis A antibody, IgM (02/04/2018 12:37 PM) Component Value Ref Range Hep A IgM Nonreactive Nonreactive Specimen Performing Laboratory [place] [address] * ED Titer & Pattern (02/04/2018 12:37 PM) Component Value Ref Range ED Titer >=1:2560 ED Pattern Speckled Specimen [place] [address] * Ceruloplasmin (02/04/2018 12:37 PM) Component Value Ref Range Ceruloplasmin 29 18 - 53 mg/dL Comment: Adults: Males: 18-36 mg/dL Females: 18-53 mg/dL Pediatrics: Males (mg/dL) Females (mg/dL) 0-30 Days 8-25 3-28 31 Days-11 Month 15-48 15-43 1-3 Years 25-56 29-54 4-6 Years 29-56 26-54 7-9 Years 25-52 23-48 10-12 Years 21-51 21-48 13-15 Years 20-50 21-46 16-18 Years 20-45 22-50 The pediatric ranges are derived from the following criteria: Janis SJ, Barber QUINTANILLA, Kellen J et al Pediatric reference ranges for Hbbp-0-Klielpfutonob and ceruloplasmin. Clin. Chem 1997; 43:S1999 Pediatric Reference Ranges, 2nd., [place] Janiset al. editors. [employer], [place], [place] 1997. Specimen Performing Laboratory Blood [facility] [address] [place] [address] Narrative Performing Lab *[facility], [address] [place] [id number] Carolina Stein MD, PhD * Alpha fetoprotein (AFP), tumor marker (02/04/2018 12:37 PM) Component Value Ref Range Alpha-Fetoprotein <2.0 <10.0 ng/mL Specimen Performing Laboratory [place] [address] * Hepatitis B core antibody, total (02/04/2018 12:37 PM) Component Value Ref Range Hep B Core Total Ab Nonreactive Nonreactive Specimen Performing Laboratory [place] [address] * Hepatitis C PCR, Quantitative (02/04/2018 12:37 PM) Component Value Ref Range HCV PCR, Quantitative HCV RNA not detected HCV RNA not detected Specimen Performing Laboratory [place] [address] Narrative This test uses a Real-Time Polymerase Chain Reaction (RT-PCR) methodology and was performed using HECTOR Ampliprep/HECTOR TaqMan HCV test kit version 2.0 ([employer]). Reportable range for this assay is 15 - 100,000,000 IU per mL (1.18 - 8.00 Log IU/mL). * Hepatitis B surface antibody (02/04/2018 12:37 PM) Component Value Ref Range Hep B S Ab 9.1 (H) <8.0 mIU/mL Specimen Performing Laboratory Blood [address] [address] * Hepatitis B surface antigen (02/04/2018 12:37 PM) Component Value Ref Range hepatitis B Surface Ag Nonreactive Nonreactive Specimen Performing Laboratory Blood [address] [address] * CBC with platelet count + automated diff (02/04/2018 12:37 PM) Specimen Performing Laboratory Blood [facility] ([facility]) Narrative The following orders were created for panel order CBC with platelet count + automated diff. Procedure Abnormality Status --------- - ------ CBC with platelet count ...[[id number]]AbnormalFinal result Please view results for these tests on the individual orders. * Anti-Nuclear Antibody (ED) (02/04/2018 12:37 PM) Component Value Ref Range ED Positive (A) Negative Specimen Performing Laboratory [address] [address] * Immunoglobulin G (IgG) (02/04/2018 12:37 PM) Component Value Ref Range IgG 1186 540 - 1822 mg/dL Specimen Performing Laboratory [address] [address] * Ferritin (02/04/2018 12:37 PM) Component Value Ref Range Ferritin 12 5 - 275 ng/mL Specimen Performing Laboratory [address] [address] * Bilirubin, direct (02/04/2018 12:37 PM) Component Value Ref Range Bilirubin, Direct 0.2 0.1 - 0.5 mg/dL Specimen Performing Laboratory [address] [address] * Comprehensive Metabolic Panel (02/04/2018 12:37 PM) Component Value Ref Range Protein, Total 7.7 6.0 - 8.3 gm/dL Albumin 4.0 3.5 - 5.0 g/dL Alkaline Phosphatase 62 40 - 150 U/L Total Bilirubin 0.5 0.2 - 1.2 mg/dL Sodium 143 136 - 145 meq/L Potassium 4.2 3.5 - 5.1 meq/L Chloride 106 98 - 107 meq/L CO2 28 22 - 29 meq/L BUN 15 7 - 21 mg/dL Creatinine 0.71 0.57 - 1.25 mg/dL Glucose 94 70 - 105 mg/dL Calcium 9.4 8.4 - 10.2 mg/dL AST 22 5 - 34 U/L ALT 20 6 - 55 U/L EGFR 104Comment: ESTIMATED GFR IS NOT ACCURATE mL/min/1.73 sq m CREATININE CLEARANCE IN PREDICTING GLOMERULAR FILTRATION RATE. ESTIMATED GFR IS NOT APPLICABLE FOR DIALYSIS PATIENTS. Specimen Performing Laboratory Blood [facility] [address] [address] after 04/13/2017
[2018-04-14] MEDS ORDERED: ONDANSETRON HCL INJ 2 MG/ML VIAL IV STA (20:42)
[2018-04-14] MEDS ORDERED: SODIUM CHLORIDE 0.9% 1000ML 1,000 ML IV STA (20:42)
[2018-04-14 20:50] LABS: BASOPHILS % 0.8 % (0.0-1.0); EOSINOPHILS # (AUTO) 0.1 (0.0-0.4); EOSINOPHILS % 1.8 % (0.0-6.0); HEMATOCRIT 34.7 % (34.2-44.1); HEMOGLOBIN 10.9 g/dL (12.0-16.0); LYMPHOCYTES # (AUTO) 1.2 (1.0-3.2); LYMPHOCYTES % 23.6 % (18.0-39.1); MEAN CORPUSCULAR HEMOGLOBIN 24.5 pg (28-32); MEAN CORPUSCULAR HGB CONC 31.4 g/dL (31-35); MEAN CORPUSCULAR VOLUME 78.2 fL (81-99); MONOCYTES # (AUTO) 0.5 (0.2-0.8); MONOCYTES % 10.9 % (4.4-11.3); NEUTROPHILS # (AUTO) 3.1 (2.1-6.9); NEUTROPHILS % 62.7 % (38.7-80.0); PLATELET COUNT 296 x10e3/uL (140-360); RED BLOOD COUNT 4.44 x10e6/uL (3.6-5.1); RED CELL DISTRIBUTION WIDTH 13.8 % (11.7-14.4)
[2018-04-14 20:53] LABS: BILIRUBIN,URINE 1+ (NEGATIVE); CLARITY,URINE SL CLOUDY (CLEAR); COLOR,URINE YELLOW (YELLOW); KETONES,URINE NEGATIVE (NEGATIVE); LEUKOCYTE ESTERASE ,URINE NEGATIVE (NEGATIVE); NITRITE,URINE NEGATIVE (NEGATIVE); PROTEIN,URINE DIPSTICK TRACE (NEGATIVE); URINE UROBILINOGEN 1 mg/dL (0.2 - 1)
[2018-04-14 21:04] LABS: BACTERIA,URINE MANY /HPF; EPITHELIAL CELLS,URINE MANY /LPF
[2018-04-14 21:05] LABS: ALANINE AMINOTRANSFERASE 131 IU/L (0-55); ALBUMIN 3.7 g/dL (3.5-5.0); ALBUMIN/GLOBULIN RATIO 0.8 (0.8-2.0); ALKALINE PHOSPHATASE 119 IU/L (40-150); AMYLASE 41 U/L (25-125); ANION GAP 11.6 mmol/L (8-16); BLOOD UREA NITROGEN 9 mg/dL (7-26); BUN/CREATININE RATIO 14 (6-25); CALCIUM 9.3 mg/dL (8.4-10.2); CARBON DIOXIDE 24 mmol/L (22-29); CHLORIDE 107 mmol/L (98-107); CREATININE, SERUM 0.66 mg/dL (0.57-1.11); EST GLOMERULAR FILTRATION RATE > 60 ML/MIN (60-); GLUCOSE 89 mg/dL (74-118); LIPASE 30 U/L (8-78); MAGNESIUM 1.6 MG/DL (1.3-2.1); POTASSIUM 3.6 mmol/L (3.5-5.1); SODIUM 139 mmol/L (136-145)
[2018-04-14] MEDS ORDERED: ONDANSETRON HCL 4 MG ORAL DISINTEGRATING TAB ONE (21:29)
[2018-04-14] MEDS ORDERED: ONDANSETRON HCL 4 MG ORAL DISINTEGRATING TAB SL NR (21:45)
[2018-04-14 22:38] VITALS: BP 123/89
[2018-04-14] MEDS ORDERED: ZOFRAN ODT4 MG SL (23:04)
== END 2018-04-14 23:17 | disposition home or self-care (01) ==
LOC: ER 18:33
CPT/HCPCS: J7030

== ENCOUNTER 2018-05-03 16:20 | Emergency (ER) | payer OTHER ==
[~2018-05-03] VITALS: Ht 175.3 cm; Wt 96.6 kg
[~2018-05-03 16:20] MED LIST changes: +ZOFRAN ODT4 MG SL
--- OUTSIDE RECORDS SUMMARY | 2018-05-03 16:22 | XMS REPORT | Clinical Summary ---
Author Author ABBY [facility] Address Unknown Phone Unavailable Care Team Providers Care [employer] Recreation Specialist Name Role Phone PCP Unavailable Allergies Active [...] Hives Tramadol Swelling 01/03/2017 States that at [facility], received tramadol and felt like her throat [...] tablet (15 mg 30 tablet 0 04/01/20 04/17/20 Discontin MG immediate release total) by mouth [...] 01/07/2018 Systemic lupus erythematosus (SLE) in adult ([facility]) 01/07/2018 Periapical abscess with sinus tract 09/24/2017 Immunosuppression ([facility]) 12/19/2016 Calculus of gallbladder without cholecystitis without [...] decay Antiphospholipid antibody syndrome (HCC) Hepatomegaly Splenomegaly Overweight (BMI 25.0-29.9) Encounters Date Type Specialty Care Team Description 04/17/2018 Office Visit Hepatology Honey Jimenez Autoimmune hepatitis MPH (HCC) (Primary Dx);Elevated liver enzymes;Overweight (BMI 25.0-29.9);Fibrosis of liver (HCC);Systemic lupus erythematosus, unspecified SLE type, unspecified organ involvement status (HCC);Low iron;Immune to hepatitis B;Immunization counseling;Screening for malignant neoplasm 04/13/2018 Emergency Emergency Medicine - 04/14/2018 04/13/2018 Telephone Hepatology Honey Jimenez, Fever (Cough and pain on MPH the biopsy site) 04/13/2018 Telephone Hepatology Jackie Herrera RN other 03/31/2018 [facility] General Internal Medicine Honey Jimenez, Splenomegaly;Autoimmune - Encounter MPH hepatitis (HCC);Lupus 04/01/2018 Daniel Mtz MD erythematosus, unspecified form;History of liver biopsy;Antiphospholipid antibody syndrome (HCC);Immunosuppression (HCC);Systemic lupus erythematosus (SLE) in adult (HCC) 03/31/2018 Orders Only Internal Medicine Daniel Mtz MD 03/20/2018 Office Visit Hepatology Honey Jimenez Autoimmune hepatitis MPH (HCC) (Primary Dx);Splenomegaly;Lupus erythematosus, unspecified form;Obesity, Class I, BMI 30-34.9;Immunization counseling;Immune to hepatitis B;Gallbladder polyp;Low iron;Portal hypertension (HCC) 02/19/2018 [facility] Radiology Honey Jimenez, Systemic lupus Encounter MPH [...] unspecified headache type;Screening for malignant neoplasm after 05/02/2017 Family History Medical History Relation Name Comments [...] CDT Inhaled Oxygen - - Concentration Weight 94.6 kg (208 lb 9.6 oz) 04/17/2018 3:25 PM CDT Height 177.8 cm (5' 10") 03/31/2018 8:00 PM CDT Body Mass Index 29.93 04/17/2018 3:25 PM CDT Plan of Treatment Date Type Specialty Care Team Description 05/19/2018 Orders Only Transplant Hepatology 06/18/2018 Orders Only Transplant Hepatology Honey Jimenez MD [facility] [address] [address] [phone] 06/18/2018 Office Visit Hepatology Honey Jimenez MD [facility] [address] [address] [phone] Sandra gibson [facility] E Health Maintenance Due Date Last Done Comments INFLUENZA VACCINE 08/31/2018 Results * PT/aPTT (04/01/2018 5:28 AM) Only the most recent of 2 results within the time period is included. Component Value Ref Range Protime 14.1 11.7 - 14.7 seconds INR 1.1 <=5.9 PTT 37.6 (H) 22.5 - 36.0 seconds Specimen Performing Laboratory Blood - Arm, [address] [address] Narrative RECOMMENDED COUMADIN/WARFARIN INR THERAPY RANGES STANDARD [...] WBC Specimen Performing Laboratory Blood - Arm, [address] [address] * Magnesium (04/01/2018 5:28 AM) Component Value Ref Range Magnesium 1.8 1.6 - 2.6 mg/dL Specimen Performing Laboratory Blood - Arm, [address] [address] * Hepatic function panel (04/01/2018 5:28 AM) [...] U/L Specimen Performing Laboratory Blood - [place], [place] [address] * Basic metabolic panel (04/01/2018 5:28 AM) [...] PATIENTS. Specimen Performing Laboratory Blood - Arm, [place] [address] * Tissue Exam (03/31/2018 10:16 PM) Component Value Ref Range Case Report Surgical Pathology Report Case: [id number] Authorizing Provider: Daniel Mtz MD Collected: 03/31/20182215 Ordering Location: [address] Received: 03/31/20182220 Service Pathologist: Julien Foss [...] SEE COMMENT Signing Pathologist Direct Phone Line: [phone] CPT Code(s) 87120, 69422 X4, 11322 x2 CLINICAL HISTORY Known history of autoimmune [...] Specimen Performing Laboratory Tissue - Biopsy, Liver [facility] [address] [address] Narrative A previously reported component Diagnosis Comment is no longer reported. * US liver biopsy (03/31/2018 4:55 PM) Specimen Performing Laboratory [facility] Narrative FINAL REPORT Ultrasound guided random nikolai liverbiopsy: Pertinent clinical information: Autoimmune hepatitis and [...] the procedure. Impression: Successful, uncomplicated ultrasound-guided random nikolai liver biopsy Signed: Kylah Morales MD Report Verified Date/Time:03/31/2018 18:56:07 Reading Location: [address] Ultrasound Reading Room Procedure Note Interface, External Ris In - 03/31/2018 6:58 PM CDT FINAL REPORT Ultrasound guided random nikolai liver biopsy: Pertinent clinical information: Autoimmune hepatitis [...] the procedure. Impression: Successful, uncomplicated ultrasound-guided random nikolai liver biopsy Signed: Kylah Morales MD Report Verified Date/Time: 03/31/2018 18:56:07 Reading Location: [address] Ultrasound Reading Room * hCG, quantitative, (03/31/2018 11:16 AM) Component Value Ref Range hCG Quant <1 0 - 10 mIU/mL Specimen Performing Laboratory Blood [facility] [address] [address] Narrative Non- Females: <10 mIU/mL Females: Gestation AgeReference Range(mIU/mL) 0.2-1 Week5-50 1-2 Vjiyu24-260 2-3 Weeks 100-5,000 3-4 Weeks 500-10,000 4-5 [...] MD Report Verified Date/Time:02/19/2018 12:49:27 Reading Location: [address] Radiology Reading Room Procedure Note Interface, [...] Report Verified Date/Time: 02/19/2018 12:49:27 Reading Location: [address] Radiology Reading Room * Alpha-1 antitrypsin Mutation Analysis (02/04/2018 12:38 PM) Component Value Ref Range A1 Antitrypsin Mut SEE BELOW Comment: RESULT: NO MUTATION DETECTED Interpretation: DNA testing indicates that this individual is negative for the PI*Z and PI*S alleles in the slbva-1-gbsfkjhptoe (PI) gene (genotype PI*M/PI*M). This negative result does not rule out the presence of other mutations within the PI gene or other causes of dfrlg-2-vbqvjzsnint deficiency. Therefore, these results should be interpreted in the context of the individual's clinical presentation, and other laboratory tests such as measurement of serum cmrsn-6-aapquvxxfgq levels. Laboratory results and submitted clinical information reviewed by Silvano Ibarra, Ph.D., FAUSTINO, RYAN, JAIs. Isien-8-jaujinydiml deficiency is a relatively common autosomal recessive condition. The two most common deficiency alleles in the ithvi-6-ukldbhhxsqa gene (protease inhibitor locus, PI) are designated [...] smoke. It should be noted that serum vqxhl-7-qpqbkqsaujk levels can be induced by a wide variety of conditions that include , infection, numerous inflammatory conditions, cancer, and liver disease. Levels of nsjid-7-fitprlsjhvf may be reduced by other conditions. Therefore, immunological and functional determinations of serum xnzvn-5-ntvtrdxltfb levels may not correlate with the individual's PI genotype. The PI*Z, PI*S, and PI*M alleles are detected by multiplex polymerase chain reaction (PCR) amplification of specific regions of the PI gene, followed by restriction enzyme digestion and capillary electrophoresis. This assay does not test for the presence of other mutations within the bwyjt-4-nzzzlxknwbq gene or non-genetic causes of rkaqf-9-gehfbpwbshw deficiency. Since genetic variation and other factors can affect the accuracy of direct mutation testing, these results should be interpreted in light of clinical and familial data. This test was developed and its analytical performance characteristics have been determined by [facility]. It has not been cleared or approved by FDA. This assay has been validated pursuant to the CLIA regulations and is used for clinical purposes. Clinical Indication NOT GIVEN Referring Physician NOT GIVEN Specimen Performing Laboratory Blood [facility] [address] [place] [address] Narrative Performing Lab [facility] [address] [address] Carolina Stein MD, PhD * Mitochondrial Antibodies, M2 (02/04/2018 12:38 PM) Component Value Ref Range Mitochondria M2 Ab <20.0 See Note: U Comment: Reference Range: NEGATIVE: < OR=20.0 EQUIVOCAL: 20.1-24.9 POSITIVE: > OR=25.0 Specimen Performing Laboratory Blood [facility] [address] [address] Narrative Performing Lab [facility] [address] [address] Carolina Stein MD, PhD * Dxrch-8-Lixxfykiolm (02/04/2018 12:38 PM) Component Value Ref Range A-1 Antitrypsin 154.60 90.00 - 200.00 mg/dL Specimen Performing [place] [address] * Pro-time/INR (02/04/2018 12:38 PM) Component Value Ref Range Protime 13.0 11.7 - 14.7 seconds INR 1.0 <=5.9 Specimen Performing Laboratory [address] [address] Narrative RECOMMENDED COUMADIN/WARFARIN INR THERAPY RANGES STANDARD DOSE: 2.0 - 3.0 Includes: PROPHYLAXIS for venous thrombosis, systemic embolization; TREATMENT for venous thrombosis and/or pulmonary embolus. HIGH RISK: Target INR is 2.5-3.5 for patients with mechanical heart valves. * Hepatitis A antibody, IgG (02/04/2018 12:37 PM) Component Value Ref Range Hep A IgG Nonreactive Nonreactive Specimen Performing Laboratory [address] [address] * Iron, TIBC, % sat. (without ferritin) (02/04/2018 12:37 PM) Component Value Ref Range Iron 38 (L) 40 - 160 ug/dL TIBC 370 250 - 450 ug/dL Iron % Saturation 10 (L) 20 - 55 % Specimen Performing Laboratory Blood [address] [address] * CBC with platelet count + automated [...] 1 % Granulocytes-Relative Specimen Performing Laboratory Blood [address] [address] * Actin (Smooth Muscle) Antibody, IgG (02/04/2018 [...] Specimen Performing Laboratory Blood [facility] [address] [place] [address] Narrative Performing Lab [facility] [address] [place] [address] Carolina Stein MD, PhD * Hepatitis A antibody, IgM (02/04/2018 12:37 PM) Component Value Ref Range Hep A IgM Nonreactive Nonreactive Specimen Performing Laboratory Blood [address] [address] * ED Titer & Pattern (02/04/2018 12:37 PM) Component Value Ref Range ED Titer >=1:2560 ED Pattern Speckled Specimen Performing Laboratory Blood [address] [address] * Ceruloplasmin (02/04/2018 12:37 PM) Component Value [...] from the following criteria: Janis SJ, Barber JM, Kellen J et al Pediatric reference ranges for Qamv-6-Rxfxlldiouwos and ceruloplasmin. Clin. Chem 1997; 43:S1999 Pediatric Reference Ranges, 2nd., [place] Janiset al. editors. [employer], [place], [place] 1997. Specimen Performing Laboratory Blood [facility] [address] [place] [address] Narrative Performing Lab *[facility], [address] [place] [address] Carolina Stein MD, PhD * Alpha fetoprotein (AFP), tumor marker (02/04/2018 12:37 PM) Component Value Ref Range Alpha-Fetoprotein <2.0 <10.0 ng/mL Specimen Performing Laboratory Blood [address] [address] * Hepatitis B core antibody, total (02/04/2018 12:37 PM) Component Value Ref Range Hep B Core Total Ab Nonreactive Nonreactive Specimen [place] [address] * Hepatitis C PCR, Quantitative (02/04/2018 12:37 PM) Component Value Ref Range HCV PCR, Quantitative HCV RNA not detected HCV RNA not detected Specimen [place] [address] Narrative This test uses a Real-Time Polymerase Chain Reaction (RT-PCR) methodology and was performed using HECTOR Ampliprep/HECTOR TaqMan HCV test kit version 2.0 ([employer]). Reportable range for this assay is 15 - 100,000,000 IU per mL (1.18 - 8.00 Log IU/mL). * Hepatitis B surface antibody (02/04/2018 12:37 PM) Component Value Ref Range Hep B S Ab 9.1 (H) <8.0 mIU/mL Specimen [place] [address] * Hepatitis B surface antigen (02/04/2018 12:37 PM) Component Value Ref Range hepatitis B Surface Ag Nonreactive Nonreactive Specimen [place] [address] * CBC with platelet count + automated diff (02/04/2018 12:37 PM) Specimen Performing Laboratory [facility] ([facility]) Narrative The following orders were created for panel order CBC with platelet count + automated diff. Procedure Abnormality Status --------- - ------ CBC with platelet count ...[[id number]]AbnormalFinal result Please view results for these tests on the individual orders. * Anti-Nuclear Antibody (ED) (02/04/2018 12:37 PM) Component Value Ref Range ED Positive (A) Negative Specimen [place] [address] * Immunoglobulin G (IgG) (02/04/2018 12:37 PM) Component Value Ref Range IgG 1186 540 - 1822 mg/dL Specimen Performing Laboratory Blood [address] [address] * Ferritin (02/04/2018 12:37 PM) Component Value Ref Range Ferritin 12 5 - 275 ng/mL Specimen Performing Laboratory Blood [address] [address] * Bilirubin, direct (02/04/2018 12:37 PM) Component Value Ref Range Bilirubin, Direct 0.2 0.1 - 0.5 mg/dL Specimen Performing Laboratory Blood [address] [address] * Comprehensive Metabolic Panel (02/04/2018 12:37 PM) [...] FOR DIALYSIS PATIENTS. Specimen Performing Laboratory Blood [address] [address] after 05/02/2017
--- OUTSIDE RECORDS SUMMARY | 2018-05-03 16:23 | XMS REPORT | Continuity of Care Document ---
Author Author [facility] Organization [facility] Address [address] [place] [address] Phone Unavailable Care Team Providers Care Provisioning Analyst Name Role Phone KIZZY CHUA MD PCP Insurance Providers Guarantor Alcocer,Reginald Mata Address [address] [address] Email PTDECLINED [facility] [employer] Policy Number [id number] Subscriber's Name Reginald Alcocer Relationship 18 Self / Same As Patient Advance Directives Directive Response Recorded Date/Time Does the patient have an advance directive? No 02/06/18 9:56am If yes, is advance directive on file with [facility]? No 02/06/18 9:56am If not on file with [facility] will patient provide a copy? No 02/06/18 9:56am Problems No problem information available. [...] 0.35 Mg Tablet 1 Tab Oral Daily Ondansetron (Zofran Odt) 4 Mg Tab.rapdis 4 Mg Sublingual Every 6 Hours as needed for Nausea Prednisone 10 Mg Tab 15 Mg Oral Daily Social History Smoking Status Start Date Stop Date Never Smoker Hospital Discharge Instructions No hospital discharge instruction information available. Plan of Care Discharge Date 04/14/18 11:17pm Disposition HOME, SELF-CARE Condition at Discharge Stable Instructions/Education Provided Vomiting - Adult Forms Provided Work/School Excuse Prescriptions See Medication Section Referrals KIZZY CHUA MD Address: [address] [place] [address] [address] [address] Additional Instructions/Education Call for follow up appointment to see your medical provider or the referral listed. Take over the counter Motrin or Tylenol medication as needed for comfort. discussed at the bedside, drink fluids, rest and return to the emergency department for any fever, shortness of breath, chest pain, abdominal pain, trouble handling oral secretions or any new concerns. Functional Status No functional status information available. Allergies, Adverse Reactions, Alerts Allergen Type Severity Reaction Status Last Updated Penicillin Allergy Unknown Active 04/14/18 Acetaminophen Allergy Unknown Active 04/14/18 Ibuprofen Allergy Unknown Active 04/14/18 Naproxen Allergy Unknown Active 04/14/18 Clindamycin Allergy Unknown Active 04/14/18 Famotidine Allergy Unknown Active 04/14/18 Tramadol Allergy Unknown Active 04/14/18 Ketorolac Allergy Unknown Active 04/14/18 Vancomycin Allergy Unknown Active 04/14/18 Immunizations No immunization information available. Vital Signs Acute Vital Signs Vital Response Date/Time Temperature (Fahrenheit) 98.2 degrees F (97.6 - 99.5) 04/14/2018 10:38pm Pulse Pulse Rate (adult) 88 bpm (60 - 90) 04/14/2018 10:38pm Respiratory Rate 17 bpm (12 - 24) 04/14/2018 10:38pm Blood Pressure 123/89 mm Hg 04/14/2018 10:38pm Height 5 ft 9 in 04/14/2018 6:52pm Weight 213 lb 04/14/2018 6:52pm Body Mass Index 31.5 kg/m^2 04/14/2018 6:52pm Results Laboratory Results Test Name Result Units Flags Reference Collection Date/Time Result Date/ Time Comments Prothrombin Time 12.3 seconds 11.9-14.5 02/06/2018 02/06/2018 10: 48am Prothromb Time International Ratio 0.99 02/06/2018 K 02/06/2018 10:48am Oral Anticoagulant Therapy INR Values: 1. Low Intensity Therapy 1.5 - 2.0 2. Moderate Intensity Therapy 2.0 - 3.0 3. High Intensity Therapy(1) 2.5 - 3.5 4. High Intensity Therapy(2) 3.0 - 4.0 5. Panic Value INR > 5.0 Activated Partial Thromboplast Time 31.7 seconds 23.8-35.5 02/06/2018 02/06/2018 10:48am Lactic Acid Level 15.9 MG/DL 4.5-19.8 02/06/2018 K 02/06/2018 11: 22am Creatine Kinase 55 IU/L 29-168 02/06/2018 10:22am 02/06/2018 10:48am Creatine Kinase MB 0.70 ng/mL 0-5.0 02/06/2018 10:22am 02/06/2018 1: 31pm Troponin I 0.001 ng/mL 0-0.300 02/06/2018 10:22am 02/06/2018 1:31pm White Blood Count 4.88 x10e3/uL 4.8-10.8 04/14/2018 6:51pm 04/14/2018 8 :52pm Red Blood Count 4.44 x10e6/uL 3.6-5.1 04/14/2018 6:51pm 04/14/2018 8: 52pm Hemoglobin 10.9 g/dL L 12.0-16.0 04/14/2018 6:51pm 04/14/2018 8:52pm Hematocrit 34.7 % 34.2-44.1 04/14/2018 6:51pm 04/14/2018 8:52pm Mean Corpuscular Volume 78.2 fL L 81-99 04/14/2018 6:51pm 04/14/2018 8: 52pm Mean Corpuscular Hemoglobin 24.5 pg L 28-32 04/14/2018 6:51pm 2017 8:52pm Mean Corpuscular Hemoglobin Concent 31.4 g/dL 31-35 04/14/2018 6:51pm 04/14/2018 8:52pm Red Cell Distribution Width 13.8 % 11.7-14.4 04/14/2018 6:51pm 2017 8:52pm Platelet Count 296 x10e3/uL 140-360 04/14/2018 6:51pm 04/14/2018 8: 52pm Neutrophils (%) (Auto) 62.7 % 38.7-80.0 04/14/2018 6:51pm 04/14/2018 8: 52pm Lymphocytes (%) (Auto) 23.6 % 18.0-39.1 04/14/2018 6:51pm 04/14/2018 8: 52pm Monocytes (%) (Auto) 10.9 % 4.4-11.3 04/14/2018 6:51pm 04/14/2018 8: 52pm Eosinophils (%) (Auto) 1.8 % 0.0-6.0 04/14/2018 6:51pm 04/14/2018 8: 52pm Basophils (%) (Auto) 0.8 % 0.0-1.0 04/14/2018 6:51pm 04/14/2018 8:52pm IM GRANULOCYTES % 0.2 % 0.0-1.0 04/14/2018 6:51pm 04/14/2018 8:52pm Neutrophils # (Auto) 3.1 2.1-6.9 04/14/2018 6:51pm 04/14/2018 8:52pm Lymphocytes # (Auto) 1.2 1.0-3.2 04/14/2018 6:51pm 04/14/2018 8:52pm Monocytes # (Auto) 0.5 0.2-0.8 04/14/2018 6:51pm 04/14/2018 8:52pm Eosinophils # (Auto) 0.1 0.0-0.4 04/14/2018 6:51pm 04/14/2018 8:52pm Basophils # (Auto) 0.0 0.0-0.1 04/14/2018 6:51pm 04/14/2018 8:52pm Absolute Immature Granulocyte (auto 0.01 x10e3/uL 0-0.1 04/14/2018 6: 51pm 04/14/2018 8:52pm Urine Color YELLOW YELLOW 04/14/2018 6:59pm 04/14/2018 8:53pm Urine Clarity SL CLOUDY CLEAR 04/14/2018 6:59pm 04/14/2018 8:53pm Urine Specific [place] 1.030 H 1.010-1.025 04/14/2018 6:59pm 2017 8:53pm Urine pH 6 5 - 7 04/14/2018 6:59pm 04/14/2018 8:53pm Urine Leukocyte Esterase NEGATIVE NEGATIVE 04/14/2018 6:59pm 2017 8:53pm Urine Nitrite NEGATIVE NEGATIVE 04/14/2018 6:59pm 04/14/2018 8:53pm Urine Protein TRACE H NEGATIVE 04/14/2018 6:59pm 04/14/2018 8:53pm Urine Glucose (UA) NEGATIVE NEGATIVE 04/14/2018 6:59pm 04/14/2018 8: 53pm Urine Ketones NEGATIVE NEGATIVE 04/14/2018 6:59pm 04/14/2018 8:53pm Urine Urobilinogen 1 mg/dL 0.2 - 1 04/14/2018 6:59pm 04/14/2018 8:53pm Urine Bilirubin 1+ H NEGATIVE 04/14/2018 6:59pm 04/14/2018 8:53pm Urine Blood 1+ H NEGATIVE 04/14/2018 6:59pm 04/14/2018 8:53pm Urine WBC NONE /HPF 0-5 04/14/2018 6:59pm 04/14/2018 9:04pm Urine RBC NONE /HPF 0-5 04/14/2018 6:59pm 04/14/2018 9:04pm Urine Bacteria MANY /HPF H NONE 04/14/2018 6:59pm 04/14/2018 9:04pm Urine Epithelial Cells MANY /LPF NONE 04/14/2018 6:59pm 04/14/2018 9: 04pm Sodium Level 139 mmol/L 136-145 04/14/2018 6:51pm 04/14/2018 9:06pm Potassium Level 3.6 mmol/L 3.5-5.1 04/14/2018 6:51pm 04/14/2018 9:06pm Chloride Level 107 mmol/L 98-107 04/14/2018 6:5104/14/2018 9:06pm Carbon Dioxide Level 24 mmol/L 22-04/14/2018 6:5104/14/2018 9: 06pm Anion Gap 11.6 mmol/L 8-04/14/2018 6:04/14/2018 9:06pm Blood Urea Nitrogen 9 mg/dL 7-04/14/2018 6:5104/14/2018 9:06pm Creatinine 0.66 mg/dL 0.57-1.11 04/14/2018 6:5104/14/2018 9:06pm BUN/Creatinine Ratio 14 6-04/14/2018 6:04/14/2018 9:06pm Estimat Glomerular Filtration Rate > 60 ML/MIN 6004/14/2018 6: 9:06pm Ranges were taken from the National Kidney Disease Education Program and the National Kidney Foundation literature. Reference ranges: 60 or greater: Normal 16-59 (for 3 consecutive months): Chronic kidney disease 15 or less: Kidney failure Glucose Level 89 mg/dL 74-118 04/14/2018 6:04/14/2018 9:06pm Calcium Level 9.3 mg/dL 8.4-10.2 04/14/2018 6:04/14/2018 9:06pm Magnesium Level 1.6 MG/DL 1.3-2.1 04/14/2018 6:04/14/2018 9:06pm Total Bilirubin 0.5 mg/dL 0.2-1.2 04/14/2018 6:04/14/2018 9:06pm Aspartate Amino Transf (AST/SGOT) 132 IU/L H 5-34 04/14/2018 6: 9:06pm Alanine Aminotransferase (ALT/SGPT) 131 IU/L H 0-55 04/14/2018 6:51pm 9:06pm Total Protein 8.2 g/dL H 6.5-8.1 04/14/2018 6:51pm 04/14/2018 9:06pm Albumin 3.7 g/dL 3.5-5.0 04/14/2018 6:51pm 04/14/2018 9:06pm Globulin 4.5 g/dL H 2.3-3.5 04/14/2018 6:51pm 04/14/2018 9:06pm Albumin/Globulin Ratio 0.8 0.8-2.0 04/14/2018 6:51pm 04/14/2018 9: 06pm Alkaline Phosphatase 119 IU/L 40-150 04/14/2018 6:51pm 04/14/2018 9: 06pm Amylase Level 41 U/L 25-125 04/14/2018 6:51pm 04/14/2018 9:06pm Lipase 30 U/L 8-78 04/14/2018 6:51pm 04/14/2018 9:06pm Human Chorionic Gonadotropin, Qual NEGATIVE NEGATIVE 04/14/2018 6: 51pm 04/14/2018 8:55pm Microbiology Results Procedure Source Organism/Result Collection Date/Time Result Date/Time Result Status Blood Culture Blood NO GROWTH AFTER 5 DAYS, FINAL REPORT 02/06/2018 10: 14am 02/11/2018 10:27am Final Procedures Procedure Status Date Provider(s) X-ray of chest, two views Active 02/06/18 JUSTIN CERDA Encounters Encounter Location Arrival/Admit Date Discharge/Depart Date Attending Provider Departed Emergency Room [facility] 04/14/18 6:33pm 11:17pm CHRIS RODAS MD Departed Emergency Room [facility] 02/06/18 9:53am 12:00pm JUSTIN CERDA
--- NOTE | 2018-05-03 17:52 | Diagnostic Imaging Report ---
RIGHT FIFTH FINGER X-RAY - 3 VIEWS HISTORY: \S\INJURED RIGHT FIFTH FINGER \S\[id number] \S\1730 \S\N COMPARISON: None available. FINDINGS: Bones: No acute displaced fracture. Osseous alignment is within normal limits. Joints: The joint spaces are well-maintained. Soft tissues: The soft tissues appear unremarkable. IMPRESSION: No acute radiographic abnormality. Signed by: Dr. Eli Dukes M.D. on 05/03/2018 5:48 PM
== END 2018-05-03 18:25 | disposition home or self-care (01) ==
LOC: ER 16:20
DX: S63.636A Sprain of interphalangeal joint of right little finger, initial encounter (principal); Y93.11 Activity, swimming; Y92.832 Beach as the place of occurrence of the external cause
CPT/HCPCS: 99283

== ENCOUNTER 2018-05-11 17:20 | Emergency (ER) | payer OTHER ==
[~2018-05-11] VITALS: Ht 175.3 cm; Wt 96.6 kg
--- OUTSIDE RECORDS SUMMARY | 2018-05-11 17:22 | XMS REPORT | Continuity of Care Document ---
Author Author [facility] Organization [facility] Address [address] [place] [address] Phone Unavailable Care Team Providers Care Compress Machine Operator Name Role Phone KIZZY CHUA MD PCP Insurance Providers Guarantor Reginald Alcocer Address [address] [address] Email NONE Payer [facility] [employer] Policy Number [id number] Subscriber's Name Reginald Alcocer Relationship 18 Self / Same As Patient Effective Date 17 Advance Directives Directive Response Recorded Date/Time Does the patient have an advance directive? No 02/06/18 9:56am If yes, is advance directive on file with [facility]? No 02/06/18 9:56am If not on file with [facility] will patient provide a copy? Yes 04/15/18 12:46am Do you have a Directive to Physician? No 05/03/18 5:59pm Do you have a Medical Power of Office Machine Repair Shop Supervisor? No 05/03/18 5:59pm Do you have an out of hospital Do Not Resuscitate Order? No 05/03/18 5:59pm Do you have any special needs we should be aware of? No 05/03/18 5:59pm Do you have a support person here with you today? Yes 05/03/18 5:59pm Did patient receive Notice of Privacy Practices? Yes 05/03/18 5:59pm Did patient receive patient rights and responsibilities? Yes 05/03/18 5:59pm Problems No problem information available. Medications Current Home Medications Medication Dose Units Route Directions Days Qty Instructions Start Date Aspirin (Aspir 81) 81 Mg Tablet. 1 Tab Oral Daily Celecoxib (Celebrex) 200 Mg Capsule 1 Tab Oral Daily Esomeprazole Magnesium (Nexium) 40 Mg Capsule. 1 Cap Oral Daily PROTONIX THERAPEUTIC SUBSTITUTE FOR NEXIUM PER [facility] Fluticasone Propionate (Flovent Hfa) 17 Gm Aers [...] information available. Plan of Care Discharge Date 05/03/18 6:25pm Disposition HOME, SELF-CARE Condition at Discharge Stable Instructions/Education Provided Sprains - Finger Forms Provided Work/School Excuse Prescriptions See Medication Section Referrals KIZZY CHUA MD Address: [address] [place] [id number] Additional Instructions/Education follow up with pcp take meds as directed Functional Status No functional status information available. Allergies, Adverse Reactions, Alerts Allergen Type Severity Reaction Status Last Updated Penicillin Allergy Unknown Active 05/03/18 Acetaminophen Allergy Unknown Active 05/03/18 Ibuprofen Allergy Unknown Active 05/03/18 Naproxen Allergy Unknown Active 05/03/18 Clindamycin Allergy Unknown Active 05/03/18 Famotidine Allergy Unknown Active 05/03/18 Tramadol Allergy Unknown Active 05/03/18 Ketorolac Allergy Unknown Active 05/03/18 Vancomycin Allergy Unknown Active 05/03/18 Immunizations No immunization information available. Vital Signs Acute Vital Signs Vital Response Date/Time Temperature (Fahrenheit) 98.2 degrees F (97.6 - 99.5) 04/14/2018 10:38pm Pulse Pulse Rate (adult) 88 bpm (60 - 90) 04/14/2018 10:38pm Respiratory Rate 17 bpm (12 - 24) 04/14/2018 10:38pm Blood Pressure 123/89 mm Hg 04/14/2018 10:38pm Height 5 ft 9 in 05/03/2018 4:48pm Weight 213 lb 05/03/2018 4:48pm Body Mass Index 31.5 kg/m^2 05/03/2018 4:48pm Results Laboratory Results Test Name Result Units Flags Reference Collection Date/Time Result Date/ Time Comments Prothrombin Time 12.3 seconds 11.9-14.5 02/06/2018 02/06/2018 10: 48am Prothromb Time International Ratio 0.99 02/06/201802/06/2018 10:48am Oral Anticoagulant Therapy INR Values: 1. Low Intensity Therapy 1.5 - 2.0 2. Moderate Intensity Therapy 2.0 - 3.0 3. High Intensity Therapy(1) 2.5 - 3.5 4. High Intensity Therapy(2) 3.0 - 4.0 5. Panic Value INR > 5.0 Activated Partial Thromboplast Time 31.7 seconds 23.8-35.5 02/06/2018 02/06/2018 10:48am Lactic Acid Level 15.9 MG/DL 4.5-19.8 02/06/2018 02/06/2018 11: 22am Creatine Kinase 55 IU/L [...] 8:52pm Neutrophils # (Auto) 3.1 2.1-6.9 04/14/2018 6:pm 04/14/2018 8:52pm Lymphocytes # (Auto) 1.2 1.0-3.2 [...] CLEAR 04/14/2018 6:59pm 04/14/2018 8:53pm Urine Specific [place] 1.030 H 1.010-1.025 04/14/2018 6:59pm 2017 8:53pm [...] 9:06pm Chloride Level 107 mmol/L 98-107 04/14/2018 6:51pm 04/14/2018 9:06pm Carbon Dioxide Level 24 mmol/L 22-29 04/14/2018 6:5104/14/2018 9: 06pm Anion Gap 11.6 mmol/L 8-16 04/14/2018 6:51pm 04/14/2018 9:06pm Blood Urea Nitrogen 9 mg/dL 7-04/14/2018 6:04/14/2018 9:06pm Creatinine 0.66 mg/dL 0.57-1.11 04/14/2018 6:51pm 04/14/2018 9:06pm BUN/Creatinine Ratio 14 604/14/2018 6:04/14/2018 9:06pm Estimat Glomerular Filtration Rate > 60 ML/MIN 60- 04/14/2018 6:51 9:06pm Ranges were taken from the National [...] Aminotransferase (ALT/SGPT) 131 IU/L H 0-55 04/14/2018 6:51 9:06pm Total Protein 8.2 g/dL H 6.5-8.1 [...] 10:27am Final Procedures Procedure Status Date Provider(s) EMERGENCY DEPT VISIT Completed 04/14/18 X-ray of chest, two views Active 02/06/18 JUSTIN CERDA Encounters Encounter Location Arrival/Admit Date Discharge/Depart Date Attending Provider Departed Emergency Room [facility] 05/03/18 4:20pm 6:25pm MARKELL DOWELL MD Departed Emergency Room [facility] 04/14/18 6:33pm 11:17pm CHRIS RODAS MD Departed Emergency Room [facility] 02/06/18 9:53am 12:00pm JUSTIN CERDA
--- OUTSIDE RECORDS SUMMARY | 2018-05-11 17:22 | XMS REPORT | Clinical Summary ---
Author Author ABBY [facility] Address Unknown Phone Unavailable Care Team Providers Care Commodity Manager Name Role Phone PCP Unavailable Allergies Active [...] Hives Tramadol Swelling 01/03/2017 States that at [facility], received tramadol and felt like her throat [...] 01/07/2018 Systemic lupus erythematosus (SLE) in adult ([facility]) 01/07/2018 Periapical abscess with sinus tract 09/24/2017 Immunosuppression ([facility]) 12/19/2016 Calculus of gallbladder without cholecystitis without [...] Telephone Hepatology Jackie Herrera RN other 03/31/2018 [facility] General Internal Medicine Honey Jimenez, Splenomegaly;Autoimmune - [...] hepatitis B;Gallbladder polyp;Low iron;Portal hypertension (HCC) 02/19/2018 [facility] Radiology Honey Jimenez, Systemic lupus Encounter MPH [...] unspecified headache type;Screening for malignant neoplasm after 05/10/2017 Family History Medical History Relation Name Comments [...] Transplant Hepatology Honey Jimenez MD MPH [address] [address] [phone] 06/18/2018 Office Visit Hepatology Honey Jimenez MD MPH [address] [address] [phone] [facility] Maintenance Due Date Last Done Comments INFLUENZA VACCINE 08/31/2018 Results * PT/aPTT (04/01/2018 5:28 AM) Only the most recent of 2 results within the time period is included. Component Value Ref Range Protime 14.1 11.7 - 14.7 seconds INR 1.1 <=5.9 PTT 37.6 (H) 22.5 - 36.0 seconds Specimen Performing Laboratory Blood - Arm, [address] [address] Narrative RECOMMENDED COUMADIN/WARFARIN INR THERAPY RANGES STANDARD [...] WBC Specimen Performing Laboratory Blood - Arm, [address] [address] * Magnesium (04/01/2018 5:28 AM) Component Value Ref Range Magnesium 1.8 1.6 - 2.6 mg/dL Specimen Performing Laboratory Blood - Arm, [address] [address] * Hepatic function panel (04/01/2018 5:28 AM) [...] U/L Specimen Performing Laboratory Blood - [place], [place] [address] * Basic metabolic panel (04/01/2018 5:28 AM) [...] PATIENTS. Specimen Performing Laboratory Blood - [place], [place] [address] * Tissue Exam (03/31/2018 10:16 PM) Component Value Ref Range Case Report Surgical Pathology Report Case: [id number] Authorizing Provider: Daniel Mtz MD Collected: 03/31/20182215 Ordering Location: [address] Received: 03/31/20182220 Service Pathologist: Julien Foss [...] SEE COMMENT Signing Pathologist Direct Phone Line: [phone] CPT Code(s) 59797, 36706 X4, 25127 x2 CLINICAL HISTORY Known history of autoimmune [...] Performing Laboratory Tissue - Biopsy, Liver [facility] [address] [address] Narrative A previously reported component Diagnosis Comment is no longer reported. * US liver biopsy (03/31/2018 4:55 PM) Specimen Performing Laboratory boo-box Narrative FINAL REPORT Ultrasound guided random [place] liverbiopsy: Pertinent clinical information: Autoimmune hepatitis and [...] the procedure. Impression: Successful, uncomplicated ultrasound-guided random [place] liver biopsy Signed: Kylah Morales MD Report Verified Date/Time:03/31/2018 18:56:07 Reading Location: [address] Ultrasound Reading Room Procedure Note Interface, External Ris In - 03/31/2018 6:58 PM CDT FINAL REPORT Ultrasound guided random [place] liver biopsy: Pertinent clinical information: Autoimmune hepatitis [...] the procedure. Impression: Successful, uncomplicated ultrasound-guided random [place] liver biopsy Signed: Kylah Morales MD Report Verified Date/Time: 03/31/2018 18:56:07 Reading Location: [address] Ultrasound Reading Room * hCG, quantitative, (03/31/2018 11:16 AM) Component Value Ref Range hCG Quant <1 0 - 10 mIU/mL Specimen Performing Laboratory Blood [facility] [address] [address] Narrative Non- Females: <10 mIU/mL Females: Gestation AgeReference Range(mIU/mL) 0.2-1 Week5-50 1-2 Rnyyr01-967 2-3 Weeks 100-5,000 3-4 Weeks 500-10,000 4-5 [...] MD Report Verified Date/Time:02/19/2018 12:49:27 Reading Location: [address] Radiology Reading Room Procedure Note Interface, [...] Report Verified Date/Time: 02/19/2018 12:49:27 Reading Location: [address] Radiology Reading Room * Alpha-1 antitrypsin Mutation Analysis (02/04/2018 12:38 PM) Component Value Ref Range A1 Antitrypsin Mut SEE BELOW Comment: RESULT: NO MUTATION DETECTED Interpretation: DNA testing indicates that this individual is negative for the PI*Z and PI*S alleles in the tcfsy-5-uaflgfplehq (PI) gene (genotype PI*M/PI*M). This negative result does not rule out the presence of other mutations within the PI gene or other causes of tpxsq-8-khfkilmizrk deficiency. Therefore, these results should be interpreted in the context of the individual's clinical presentation, and other laboratory tests such as measurement of serum scqep-2-wmsrlsmluvs levels. Laboratory results and submitted clinical information reviewed by Silvano Ibarra, Ph.D., FAUSTINO, RYAN, JAIs. Edpdw-6-fqvduafgnzt deficiency is a relatively common autosomal recessive condition. The two most common deficiency alleles in the uduls-0-fjcxykswmpt gene (protease inhibitor locus, PI) are designated [...] smoke. It should be noted that serum bzost-9-vblcxxesmtl levels can be induced by a wide variety of conditions that include , infection, numerous inflammatory conditions, cancer, and liver disease. Levels of etubw-9-eaonkluwqwl may be reduced by other conditions. Therefore, immunological and functional determinations of serum auvrc-0-qmfivckzasl levels may not correlate with the individual's PI genotype. The PI*Z, PI*S, and PI*M alleles are detected by multiplex polymerase chain reaction (PCR) amplification of specific regions of the PI gene, followed by restriction enzyme digestion and capillary electrophoresis. This assay does not test for the presence of other mutations within the hyfcr-8-nlhglrgmcnx gene or non-genetic causes of eegjd-0-kevxyccsfzm deficiency. Since genetic variation and other factors can affect the accuracy of direct mutation testing, these results should be interpreted in light of clinical and familial data. This test was developed and its analytical performance characteristics have been determined by [facility]. It has not been cleared or approved by FDA. This assay has been validated pursuant to the CLIA regulations and is used for clinical purposes. Clinical Indication NOT GIVEN Referring Physician NOT GIVEN Specimen Performing Laboratory Blood [facility] [id number] [place] [address] Narrative Performing Lab [facility] [address] [address] Carolina Stein MD, PhD * Mitochondrial Antibodies, M2 (02/04/2018 12:38 PM) Component Value Ref Range Mitochondria M2 Ab <20.0 See Note: U Comment: Reference Range: NEGATIVE: < OR=20.0 EQUIVOCAL: 20.1-24.9 POSITIVE: > OR=25.0 Specimen Performing Laboratory Blood [facility] [address] [address] Narrative Performing Lab [facility] [address] [address] Carolina Stein MD, PhD * Xozio-1-Ocflsdmsuun (02/04/2018 12:38 PM) Component Value Ref Range A-1 Antitrypsin 154.60 90.00 - 200.00 mg/dL Specimen [place]forming [place] [address] * Pro-time/INR (02/04/2018 12:38 PM) Component Value Ref Range Protime 13.0 11.7 - 14.7 seconds INR 1.0 <=5.9 Specimen Performing Laboratory [address] [address] Narrative RECOMMENDED COUMADIN/WARFARIN INR THERAPY RANGES STANDARD DOSE: 2.0 - 3.0 Includes: PROPHYLAXIS for venous thrombosis, systemic embolization; TREATMENT for venous thrombosis and/or pulmonary embolus. HIGH RISK: Target INR is 2.5-3.5 for patients with mechanical heart valves. * Hepatitis A antibody, IgG (02/04/2018 12:37 PM) Component Value Ref Range Hep A IgG Nonreactive Nonreactive Specimen Performing Laboratory [address] [address] * Iron, TIBC, % sat. (without ferritin) (02/04/2018 12:37 PM) Component Value Ref Range Iron 38 (L) 40 - 160 ug/dL TIBC 370 250 - 450 ug/dL Iron % Saturation 10 (L) 20 - 55 % Specimen Performing Laboratory Blood [address] [address] * CBC with platelet count + automated [...] 1 % Granulocytes-Relative Specimen Performing Laboratory Blood [address] [address] * Actin (Smooth Muscle) Antibody, IgG (02/04/2018 [...] Specimen Performing Laboratory Blood [facility] [address] [place] [address] Narrative Performing Lab EZ [facility] [address] [place] [address] Carolnia Stein MD, PhD * Hepatitis A antibody, IgM (02/04/2018 12:37 PM) Component Value Ref Range Hep A IgM Nonreactive Nonreactive Specimen Performing Laboratory Blood [address] [address] * ED Titer & Pattern (02/04/2018 12:37 PM) Component Value Ref Range ED Titer >=1:2560 ED Pattern Speckled Specimen Performing Laboratory Blood [address] [address] * Ceruloplasmin (02/04/2018 12:37 PM) Component Value [...] J et al Pediatric reference ranges for Neuj-7-Xsnptbtngitaa and ceruloplasmin. Clin. Chem 1997; 43:S1999 Pediatric Reference Ranges, 2nd., [place] Janiset al. editors. [employer], [place], [place] 1997. Specimen Performing Laboratory Blood [facility] [address] [place] [address] Narrative Performing Lab *SPL [facility], [address] [place] [address] Carolina Stein MD, PhD * Alpha fetoprotein (AFP), tumor marker (02/04/2018 12:37 PM) Component Value Ref Range Alpha-Fetoprotein <2.0 <10.0 ng/mL Specimen Performing Laboratory Blood [address] [address] * Hepatitis B core antibody, total (02/04/2018 12:37 PM) Component Value Ref Range Hep B Core Total Ab Nonreactive Nonreactive [place] [address] * Hepatitis C PCR, Quantitative (02/04/2018 12:37 PM) Component Value Ref Range HCV PCR, Quantitative HCV RNA not detected HCV RNA not detected [place] [address] Narrative This test uses a Real-Time Polymerase Chain Reaction (RT-PCR) methodology and was performed using HECTOR Ampliprep/HECTOR TaqMan HCV test kit version 2.0 ([employer]). Reportable range for this assay is 15 - 100,000,000 IU per mL (1.18 - 8.00 Log IU/mL). * Hepatitis B surface antibody (02/04/2018 12:37 PM) Component Value Ref Range Hep B S Ab 9.1 (H) <8.0 mIU/mL [place] [address] * Hepatitis B surface antigen (02/04/2018 12:37 PM) Component Value Ref Range hepatitis B Surface Ag Nonreactive Nonreactive [place] [address] * CBC with platelet count + automated diff (02/04/2018 12:37 PM) Specimen Performing Laboratory [facility] LABORATORY (ANY) Narrative The following orders were created for panel order CBC with platelet count + automated diff. Procedure Abnormality Status --------- - ------ CBC with platelet count ...[[id number]]AbnormalFinal result Please view results for these tests on the individual orders. * Anti-Nuclear Antibody (ED) (02/04/2018 12:37 PM) Component Value Ref Range ED Positive (A) Negative [place] [address] * Immunoglobulin G (IgG) (02/04/2018 12:37 PM) Component Value Ref Range IgG 1186 540 - 1822 mg/dL Specimen Performing Laboratory Blood [address] [address] * Ferritin (02/04/2018 12:37 PM) Component Value Ref Range Ferritin 12 5 - 275 ng/mL Specimen Performing Laboratory Blood [address] [address] * Bilirubin, direct (02/04/2018 12:37 PM) Component Value Ref Range Bilirubin, Direct 0.2 0.1 - 0.5 mg/dL Specimen Performing Laboratory Blood [address] [address] * Comprehensive Metabolic Panel (02/04/2018 12:37 PM) [...] FOR DIALYSIS PATIENTS. Specimen Performing Laboratory Blood [address] [address] after 05/10/2017
== END 2018-05-11 19:15 | disposition home or self-care (01) ==
LOC: ER 17:20
DX: K08.89 Other specified disorders of teeth and supporting structures (principal); M32.9 Systemic lupus erythematosus, unspecified; M06.9 Rheumatoid arthritis, unspecified; J45.909 Unspecified asthma, uncomplicated; F41.8 Other specified anxiety disorders; G43.909 Migraine, unspecified, not intractable, without status migrainosus; K75.4 Autoimmune hepatitis; Z79.82 Long term (current) use of aspirin; Z79.1 Long term (current) use of non-steroidal anti-inflammatories (NSAID); Z79.52 Long term (current) use of systemic steroids; Z88.1 Allergy status to other antibiotic agents; Z88.0 Allergy status to penicillin; Z88.8 Allergy status to other drugs, medicaments and biological substances
CPT/HCPCS: 99283

== ENCOUNTER 2018-07-02 23:25 | Emergency (ER) | payer OTHER ==
[~2018-07-02] VITALS: Ht 175.3 cm; Wt 96.6 kg
== END 2018-07-03 01:41 | disposition left against medical advice (07) ==
LOC: ER 23:25
DX: R52 Pain, unspecified (principal)

== ENCOUNTER 2021-05-15 19:01 | Emergency (ER) | payer OTHER ==
[~2021-05-15] VITALS: Ht 15.2 cm; Wt 68.5 kg
[2021-05-15 19:42] LABS: BASOPHILS % 0.2 % (0.0-1.0); HEMATOCRIT 34.5 % (34.2-44.1); HEMOGLOBIN 11.5 g/dL (12.0-16.0); LYMPHOCYTES # (AUTO) 1.1 (1.0-3.2); LYMPHOCYTES % 9.6 % (18.0-39.1); MEAN CORPUSCULAR HEMOGLOBIN 27.8 pg (28-32); MEAN CORPUSCULAR HGB CONC 33.3 g/dL (31-35); MEAN CORPUSCULAR VOLUME 83.5 fL (81-99); MONOCYTES # (AUTO) 0.7 (0.2-0.8); MONOCYTES % 5.9 % (4.4-11.3); NEUTROPHILS # (AUTO) 9.5 (2.1-6.9); NEUTROPHILS % 83.8 % (38.7-80.0); PLATELET COUNT 154 x10e3/uL (140-360); RED BLOOD COUNT 4.13 x10e6/uL (3.6-5.1); RED CELL DISTRIBUTION WIDTH 14.2 % (11.7-14.4)
[2021-05-15 20:00] LABS: ALANINE AMINOTRANSFERASE 37 IU/L (0-55); ALBUMIN 3.9 g/dL (3.5-5.0); ALBUMIN/GLOBULIN RATIO 0.8 (0.8-2.0); ALKALINE PHOSPHATASE 67 IU/L (40-150); ANION GAP 16.4 mmol/L (8-16); BLOOD UREA NITROGEN 8 mg/dL (7-26); BUN/CREATININE RATIO 14 (6-25); CALCIUM 8.6 mg/dL (8.4-10.2); CARBON DIOXIDE 21 mmol/L (22-29); CHLORIDE 102 mmol/L (98-107); CREATINE KINASE 21 IU/L (29-168); CREATININE, SERUM 0.59 mg/dL (0.57-1.11); EST GLOMERULAR FILTRATION RATE > 60 ML/MIN (60-); GLUCOSE 94 mg/dL (74-118); POTASSIUM 4.4 mmol/L (3.5-5.1); SODIUM 135 mmol/L (136-145)
[2021-05-15 20:03] LABS: CLARITY,URINE SL CLOUDY (CLEAR); COLOR,URINE AMBER (YELLOW); KETONES,URINE 1+ (NEGATIVE); LEUKOCYTE ESTERASE ,URINE NEGATIVE (NEGATIVE); NITRITE,URINE NEGATIVE (NEGATIVE); PROTEIN,URINE DIPSTICK TRACE (NEGATIVE); URINE UROBILINOGEN 4 mg/dL (0.2 - 1)
[2021-05-15 20:22] LABS: RBC,URINE 0-5 /HPF (0-5); WBC,URINE (MAN) 0-5 /HPF (0-5)
[2021-05-15 20:23] LABS: BACTERIA,URINE FEW /HPF; EPITHELIAL CELLS,URINE FEW /LPF
== END 2021-05-15 23:56 | disposition home or self-care (01) ==
LOC: ER 19:33
DX: H92.03 Otalgia, bilateral (principal); M32.9 Systemic lupus erythematosus, unspecified; J45.909 Unspecified asthma, uncomplicated; F41.9 Anxiety disorder, unspecified
CPT/HCPCS: 36415; 70490; 80053; 81001; 81025; 82550; 82553; 84484; 85025

== ENCOUNTER 2021-10-18 14:31 | Emergency (ER) | payer OTHER ==
[~2021-10-18] VITALS: Ht 167.6 cm; Wt 68.5 kg
== END 2021-10-18 16:20 | disposition home or self-care (01) ==
LOC: ER 14:39
DX: L02.31 Cutaneous abscess of buttock (principal); M32.9 Systemic lupus erythematosus, unspecified; J45.909 Unspecified asthma, uncomplicated; M06.9 Rheumatoid arthritis, unspecified; F41.9 Anxiety disorder, unspecified
CPT/HCPCS: 99282